=== PATIENT | female | born 1940 | race Caucasian/White ===

== ENCOUNTER 2020-01-26 23:07 | Inpatient (IN) | payer OTHER, BC ==
--- NOTE | 2020-01-26 23:35 | PDOC ---
History of Present Illness - General Chief Complaint: Injury Stated Complaint: FALL Time Seen by Provider: 01/26/20 23:34 - History of Present Illness Initial Comments: 01/27/20 00:01 HPI 79 y/o F hx of HTN,HLD presents to the ED after fall at her home. She was going down the stairs when she slipped on the last 2 stairs and fell to the floor. pt fell on her left side. denies any lightheadedness, shortness of breath or LOC before or after falling.Pt is a poor historian and unable to remember certain cotter details i.e if she was able to ambulate to EMS stretcher of if she hit her head. Pt does not think she is on any blood thinners. She denies any headache,lightheadedness, nausea, vomiting, vertigo, chest pain, shortness of breath, abdominal pain. endorses: left shoulder and elbow pain. PMHx: as noted above ROS: as noted SHx: Denies Etoh, IVDA, tobacco use Allergies: NKDA ROS: GENERAL/CONSTITUTIONAL: No fever or chills. No weakness. HEAD, EYES, EARS, NOSE AND THROAT: No change in vision. No ear pain or dischar ge. No sore throat. CARDIOVASCULAR: No chest pain or shortness of breath RESPIRATORY: No cough, wheezing, or hemoptysis. GASTROINTESTINAL: No nausea, vomiting, diarrhea or constipation. GENITOURINARY: No dysuria, frequency, or change in urination. MUSCULOSKELETAL: No joint or muscle swelling or pain. No neck or back pain. SKIN: No rash NEUROLOGIC: No headache, vertigo, loss of consciousness, or change in strength/sensation. ENDOCRINE: No increased thirst. No abnormal weight change HEMATOLOGIC/LYMPHATIC: No anemia, easy bleeding, or history of blood clots. ALLERGIC/IMMUNOLOGIC: No hives or skin allergy. PE: GENERAL: Awake, alert, and fully oriented, in no acute distress HEAD: No signs of trauma, normocephalic, atraumatic EYES: PERRLA, EOMI, sclera anicteric, conjunctiva clear ENT: Auricles normal inspection, hearing grossly normal, nares patent, oropharynx clear without exudates. Moist mucosa NECK: Normal ROM, supple, no lymphadenopathy, JVD, or masses LUNGS: No distress, speaks full sentences, clear to auscultation bilaterally HEART: Regular rate and rhythm, normal S1 and S2, no murmurs, rubs or gallops, peripheral pulses normal and equal bilaterally. ABDOMEN: Soft, nontender, normoactive bowel sounds. No guarding, no rebound. No masses EXTREMITIES : ttp left shoulder and elbow. pt. unable to abduct arm at , elbow and shoulder. ttp of distal right femur. NEUROLOGICAL: Cranial nerves II through XII grossly intact. Normal speech, no focal sensorimotor deficits SKIN: Warm, Dry, normal turgor, no rashes or lesions noted MDM DDx including but not limited to: frature, hemorrhage, Workup: head and c-spine ct, left shoulder and elbow x-rays,pelvis, right femur x-rays TX: Scores - HEART score - EKG: normal sinus rhythm, HR bpm, ID ms, QRS ms, QTc ms ED course x-rays proximal humerus fracture at surgical neck with medial displacement lateral linear fracture of humeral head olecranon fracture shortening of femoral neck with hardware in place. possible fracture consult with ortho dr messer: admit patient,get pelvis ct will see patient in the a.m pt put in sling and fentanyl given for pain control surgery in 2016 IM nail to r femur and hip and ORIF R elbow pelvis CT Patient is status post open reduction internal fixation of a right femoral fracture. No refracture of the proximal right femur is identified. Please note that the fixation corona is incompletely included on the scan and the remainder of the femur cannot be evaluated. POSITIVE for an acute appearing fracture of the right pubis just adjacent to the symphysis pubis. There is a tiny indentation of the outer cortex of the right inferior pubic ramus as well. This could represent a tiny second fracture but there is a symmetric indentation on the contralateral side and therefore it is not definitely an acute fracture. POSITIVE also for an acute nondisplaced fracture of the anterior portion of the left sacral wing. This may represent a sacral insufficiency fracture but could also be caused by trauma. No dislocation of the right or left hips cervical spine CT 1. There is no definitive evidence of acute compression fracture or subluxation seen. 2. There is multilevel multi-factorial spondylosis 3. There is a faint groundglass focus of attenuation involving the upper lobes. This is nonspecific but could relate to postinfectious process. head CT no acute intracranial pathology Past History - Medical History Allergies/Adverse Reactions: Allergies Allergy/AdvReac Type Severity Reaction Status Date / Time No Known Allergies Allergy Verified 01/26/20 23:29 Home Medications: Ambulatory Orders Aspirin [ASA -] 81 mg PO DAILY tab.chew 11/23/15 Calcium 500Mg/Vit-D 200 Units [Os-Harrison 500+D -] 1 tab PO BID tab 11/23/15 Metoprolol Tartrate [Lopressor -] 12.5 mg PO BID tablet 11/23/15 - Reproductive History Is Patient Now?: No - Psycho-Social/Smoking History Smoking History: Never smoked Have you smoked in the past 12 months: No Information on smoking cessation initiated: No - Substance Abuse Hx (Audit-C & DAST Scrn) How often the patient has a drink containing alcohol: Never Score: In Men: 4 or > Positive; In Women: 3 or > Positive: 0 Screen Result (Pos requires Nsg. Audit-10AR): Negative In the last yr the pt used illegal drug/Rx for NonMed reason: No Score: Yes response is considered Positive: 0 Screen Result (Positive result requires Nsg. DAST-10): Negative *Physical Exam - Vital Signs Last Vital Signs Temp Pulse Resp BP Pulse Ox 98.6 F 89 17 137/62 98 01/26/20 23:23 01/26/20 23:23 01/26/20 23:23 01/26/20 23:23 01/26/20 23:23 ED Treatment Course - LABORATORY CBC & Chemistry Diagram: 01/27/20 03:20 01/27/20 03:20 Discharge - Discharge Information Problems reviewed: Yes Clinical Impression/Diagnosis: Fall, Fracture - Follow up/Referral Referrals: Riddhi Clark [Primary Care Provider] - - Patient Discharge Instructions - Post Discharge Activity
--- OUTSIDE RECORDS SUMMARY | 2020-01-26 23:38 | XMS ---
:1940 [facility] Care Team Providers Name Role Phone JAMES BLADIMIR Unavailable Unavailable Re-disclosure Warning The records that you are about to access may contain information from federally- assisted alcohol or drug abuse programs. If such information is present, then the following federally mandated warning applies: This information has been disclosed to you from records protected by federal confidentiality rules (42 CFR part 2). The federal rules prohibit you from making any further disclosure of this information unless further disclosure is expressly permitted by the written consent of the person to whom it pertains or as otherwise permitted by 42 CFR part 2. A general authorization for the release of medical or other information is NOT sufficient for this purpose. The Federal rules restrict any use of the information to criminally investigate or prosecute any alcohol or drug abuse patient.The records that you are about to access may contain highly sensitive health information, the redisclosure of which is protected by Article 27-F of the [facility] Public Health law. If you continue you may haveaccess to information: Regarding HIV / AIDS; Provided by facilities licensed or operated by the [facility] Office of Mental Health; or Provided by the [facility] Office for People With Developmental Disabilities. If such information is present, then the following [facility] mandated warning applies: This information has been disclosed to you from confidential records which are protected by state law. State law prohibits you from making any further disclosure of this information without the specific written consent of the person to whom it pertains, or as otherwise permitted by law. Any unauthorized further disclosure in violation of state law may result in a fine or prison sentence or both. A general authorization for the release of medical or other information is NOT sufficient authorization for further disclosure. Encounters Encounter Providers Location Date Indications Data Source(s ) Outpatient Attender: JAMES Diana 06/02/2019 [facility] PAMELAAdmitter: 10:48[facility] JAMES GARRISONReferrer: JAMES GARRISON Insurance Providers Payer name Policy type Policy ID Covered Covered republican's Policy P keyonna / Coverage republican ID relationship to [employer] ormation type [employer] MEDICARE [id number] SP [id number] BLUE CROSS O [id number] 02 [id number] SECONDARY GHI O [id number] 02 [id number] M [id number] 01 [id number] A56 Problems, Conditions, and Diagnoses Code Display Name Description Problem Type Effective Dates Data Source(s) Z12.31 Encounter for ENCNTR SCREEN Diagnosis 06/02/2019 [facility] screening MAMMOGRAM FOR 10:48:00 AM [facility]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
[2020-01-27] MEDS ORDERED: ACETAMINOPHEN 500 MG TABLET (FP) PO ONE (00:02)
--- NOTE | 2020-01-27 00:13 | PDOC ---
Documentation entered by Nancy Rodarte SCRIBE, acting as scribe for Anupama Hansen DO. Anupama Hansen DO: This documentation has been prepared by the kana, Nancy Rodarte SCRIBE, under my direction and personally reviewed by me in its entirety. I confirm that the documentation accurately reflects all work, treatment, procedures, and medical decision making performed by me. Attending Attestation - Resident Resident Name: Ezequiel Brandon - ED Attending Attestation I have performed the following: I have examined & evaluated the patient, The case was reviewed & discussed with the resident, I agree w/resident's findings & plan, Exceptions are as noted - HPI HPI: 01/26/20 23:48 Patient is a 79 year old female with a significant past medical history of hypertension and hyperlipidemia who presents to the ED after falling at home earlier today. Patient stated she was walking down stair when she slipped on the last few stairs and fell on her left side onto the floor. Patient cannot recall is she was able to walk after falling. Patient endorses: left shoulder and left elbow pain. Patient denies: LOC, lightheadedness, headache, virtigo, nausea, vomiting, SOB, chest pain, abdominal pain, Allergies: NKDA HPI is limited due to the fact that the patient is a poor historian. - Physicial Exam PE: 01/27/20 00:04 Gen: awake, alert, uncomfortable heart: +s1s2 reg lungs: cta b/l abd: soft, nt/nd +bs ext: L elbow ttp but with FROM, ttp posterior aspect of the elbow, ttp over the shoulder with limited active and passive rom, ttp over the femure on the R mid femur and distal femur, no knee ttp, able to range LE with limited ROM at the hip and knee b/l LE, no pelvis ttp, pelvis is stable neuro: cn ii-xii grossly intact, awake, alert, but poor historian, no focal deficits - Medical Decision Making 01/27/20 00:11 a/p: 79yo female with a mechanical slip and fall on the stairs -wearing socks and said the floor was slippery -required assistance to get up -hx of prior R hip fx s/p repair -R femur pain concerning for periprosthetic fx -L shoulder and L elbow pain, will send for xray -will give tylenol for pain -no loc, but unsure if she hit her head -will send for head ct/c spine -no cp/sob/palpitations - at the bedside -will monitor and reassess 01/27/20 01:16 pt pending imaging Discharge - Discharge Information Problems reviewed: Yes Clinical Impression/Diagnosis: Fall - Admission No - Follow up/Referral Referrals: Riddhi Clark [Primary Care Provider] - - Patient Discharge Instructions - Post Discharge Activity
[2020-01-27] MEDS ORDERED: ACETAMINOPHEN 325 MG TABLET (FP) ONE (00:22)
[2020-01-27 04:05] LABS: BASO % 0.1 % (0-2.0); HEMATOCRIT 35.9 % (32.4-45.2); HEMOGLOBIN 12.1 GM/dL (10.7-15.3); LYMPH % 5.2 % (8-40); MCH 31.8 pg (25.7-33.7); MCHC 33.7 g/dl (32.0-36.0); MEAN CELL VOLUME 94.2 fl (80-96); MEAN PLT VOLUME 7.3 fl (7.5-11.1); MONO % 6.5 % (3.8-10.2); NEUT % 88.2 % (42.8-82.8); PLATELET COUNT 240 K/MM3 (134-434); RBC 3.81 M/mm3 (3.60-5.2); RDW 14.4 % (11.6-15.6); WHITE BLOOD COUNT 16.8 K/mm3 (4.0-10.0)
[2020-01-27 04:18] LABS: INR 0.99 (0.83-1.09); PROTHROMBIN TIME (PATIENT) 11.7 SEC (9.7-13.0)
[2020-01-27 04:20] LABS: ACTIVATED PTT 27.6 SECONDS (25.2-36.5)
[2020-01-27 04:35] LABS: ALK PHOS 120 U/L (45-117); BILIRUBIN,TOTAL 0.4 mg/dL (0.2-1); CHLORIDE 108 mmol/L (98-107); CREATININE 0.7 mg/dL (0.55-1.3); POTASSIUM 3.6 mmol/L (3.5-5.1); SGOT/AST 22 U/L (15-37); SGPT/ALT 19 U/L (13-61); SODIUM 141 mmol/L (136-145)
[2020-01-27 04:40] LABS: ALBUMIN 3.5 g/dl (3.4-5.0); ANION GAP 9 MMOL/L (8-16); BLOOD UREA NITROGEN 26.3 mg/dL (7-18); CALCIUM 9.2 mg/dL (8.5-10.1); CO2 24 mmol/L (21-32); GLUCOSE,RANDOM 108 mg/dL (74-106); TOT PROT 6.8 g/dl (6.4-8.2)
--- NOTE | 2020-01-27 08:30 | HP ---
CHIEF COMPLAINT: mechanical fall PCP: Amber HISTORY OF PRESENT ILLNESS: Pt is a 79 y/o female with hx right femur fracture (IM nail '16) and right olecranon fracture (ORIF '16), OA, HTN, stable angina, and HLD who presents s/p mechanical fall. She states she was wearing socks while going down the stairs and fell down the last 2 steps, landing on her left elbow. She denies hitting her head or LOC. She has a cane and walker which she does not use. She holds on to objects as needed when walking. She denies feeling weakness, chest pain, shortness of breath, abdominal pain. She reports chronic b/l leg pain from OA as well as 1-2 weeks of urinary frequency. She denies malodorous urine, dysuria, and hematura. ER course was notable for: (1) left olecranon fx, right pubic fx near symphysis and possible inferior rami fx, negative head CT, c-spine spondylosis and faint groundglass possibly from post-infectious process; waiting for final radiology reports (2) WBC 16.8 PAST MEDICAL HISTORY: PAST SURGICAL HISTORY: right femur fracture (IM nail '16) and right olecranon fracture (ORIF '16) Social History: Smoking: denies Alcohol: denies Drugs: denies lives at home with Family History: mother- pulmonary fibrosis Allergies No Known Allergies Allergy (Verified 01/26/20 23:29) HOME MEDICATIONS: Home Medications Medication Instructions Recorded Imiquimod [Aldara] 1 each TP Q2D 01/27/20 Ketoconazole 2% Cream [Nizoral 2% 1 applic TP BID 01/27/20 Cream -] Metoprolol Succinate [Toprol Xl] 12.5 mg PO BID 01/27/20 REVIEW OF SYSTEMS see HPI PHYSICAL EXAMINATION Vital Signs - 24 hr 01/26/20 01/27/20 01/27/20 23:23 03:29 06:33 Temperature 98.6 F 98.9 F 98.8 F Pulse Rate 89 Pulse Rate [ 80 87 Right Radial] Respiratory 17 16 15 Rate Blood Pressure 137/62 Blood Pressure 130/71 122/60 [Right Arm] O2 Sat by Pulse 98 98 97 Oximetry (%) GENERAL: A&Ox3, forgetful, in no acute distress. HEAD: Normal with no signs of trauma. EYES: PERRL, EOMI. EARS, NOSE, THROAT: Ears normal, nares patent, moist mucous membranes. NECK: Normal range of motion. LUNGS: CTAB, no wheezes or crackles. HEART: RRR, no murmur. ABDOMEN: Soft, nontender, not distended, normoactive bowel sounds. UPPER EXTREMITIES: Warm, well-perfused. No peripheral edema. Left arm in sling with swelling at elbow, security technician strength 5/5, pain with movement, sensation intact. LOWER EXTREMITIES: Warm, well-perfused. No peripheral edema. Right hip pain with active flexion, hesitant, plantar flexion 5/5, sensation intact. NEUROLOGICAL: Cranial nerves II-XII grossly intact. Normal speech. PSYCHIATRIC: Cooperative. Good eye contact. Appropriate mood and affect. SKIN: Warm, dry, normal turgor. Laboratory Results - last 24 hr 01/27/20 01/27/20 01/27/20 03:20 03:20 03:20 WBC 16.8 H RBC 3.81 Hgb 12.1 Hct 35.9 D MCV 94.2 MCH 31.8 MCHC 33.7 RDW 14.4 Plt Count 240 D MPV 7.3 L Absolute Neuts (auto) 14.8 H Neutrophils % 88.2 H Lymphocytes % 5.2 L D Monocytes % 6.5 Eosinophils % 0.0 D Basophils % 0.1 Nucleated RBC % 0 PT with INR 11.70 INR 0.99 PTT (Actin FS) 27.6 Sodium 141 Potassium 3.6 Chloride 108 H Carbon Dioxide 24 Anion Gap 9 BUN 26.3 H Creatinine 0.7 Est GFR (CKD-EPI)AfAm 96.18 Est GFR (CKD-EPI)NonAf 82.99 Random Glucose 108 H Calcium 9.2 Total Bilirubin 0.4 AST 22 ALT 19 Alkaline Phosphatase 120 H Troponin I < 0.02 Total Protein 6.8 Albumin 3.5 ASSESSMENT/PLAN: Pt is a 79 y/o female with hx right femur fracture (IM nail '16) and right olecranon fracture (ORIF '16), OA, HTN, angina, and HLD who presents s/p mechanical fall. She is admitted for left olecranon fx and right hip fx. #left olecranon fx #right pubis fx #s/p mechanical fall -head and neck CTs are negative for acute processes -pt is unsure if on blood thinner, none on file at pharmacy but may be on ASA -pt has hx of fx and falls, consider DEXA scan as outpatient if has not had one recently -pain control with Tylenol PO, pt does not usually take medicine for pain -PT eval -ortho consulted (Dr. Smith) #urinary frequency -UTI could explain fall from possible weakness, also has leukocytosis -UA/urine cx #stable angina -continue Toprol 12.5mg BID -ASA 81mg, pt may be taking already DVT Ppx Lovenox FEN PO fluids monitor labs sodium-controlled diet dispo med/surg FULL CODE Family Medical History Family History: Unremarkable Visit type - Medication Review Med list reviewed for High Risk Meds patients 65 and older: Yes - Emergency Visit Emergency Visit: Yes ED Registration Date: 01/27/20 Care time: The patient presented to the Emergency Department on the above date and was hospitalized for further evaluation of their emergent condition. - New Patient This patient is new to me today: Yes Date on this admission: 01/27/20 - Critical Care Critical Care patient: No ATTENDING PHYSICIAN STATEMENT I saw and evaluated the patient. I reviewed the resident's note and discussed the case with the resident. I agree with the resident's findings and plan as documented. SUBJECTIVE: OBJECTIVE: ASSESSMENT AND PLAN:
[2020-01-27] MEDS: KETOCONAZOLE 2% CREAM - 60GM TUBE TP SCH ×2 (09:16→22:32)
[2020-01-27] MEDS: metoPROLOL SUCCINATE 25 MG TAB.SR.24H (FP) PO SCH ×2 (09:16→22:31)
--- NOTE | 2020-01-27 09:53 | EKG ---
Test Reason : Blood Pressure : / mmHG Vent. Rate : 096 BPM Atrial Rate : 096 BPM P-R Int : 170 ms QRS Dur : 084 ms QT Int : 388 ms P-R-T Axes : 078 -08 083 degrees QTc Int : 490 ms POOR DATA QUALITY, INTERPRETATION MAY BE ADVERSELY AFFECTED NORMAL SINUS RHYTHM SEPTAL INFARCT , AGE UNDETERMINED ABNORMAL ECG WHEN COMPARED WITH ECG OF 18-NOV-2015 18:26, SEPTAL INFARCT IS NOW PRESENT ST NOW DEPRESSED IN INFERIOR LEADS Confirmed by MARTHA ESQUIVEL MD ([id number]) on 01/27/2020 9:53:11 AM Referred By: Confirmed By:MARTHA ESQUIVEL MD
[2020-01-27] MEDS ORDERED: ENOXAPARIN NA (PORCINE) 40 MG/0.4 ML DISP.SYRIN SQ SCH (10:00)
[2020-01-27] MEDS ORDERED: ASPIRIN 81 MG CHEWABLE TABLETS PO SCH (10:00)
--- NOTE | 2020-01-27 12:02 | PN ---
Progress Note (short form) - Note Progress Note: Pt seen and examined in ER. She is a 79 year old right hand dominant female 1 day s/p fall down 2-3 stairs, with c/o pain in the right hip, left elbow, and left shoulder. PMHx of HTN only, not on any anticoagulants. AVSS Pt in NAD, A and O x 3 RLE is NVI, good ROM but with mild pain LUE is moderately swollen around the left shoulder, min swelling left elbow LUE NVI, good ROM at the left hand and wrist, + pain with motion of the elbow and forearm No significant deformity of the elbow, not tenting the skin X-rays left elbow show a completely displaced intra articular left olecranon fracture X-rays left shoulder show a comminuted, mildly displaced, mildly angulated left proximal humerus fracture X-rays right hip and femur show a long Gamma nail in a good position, no obvious fracture CT scan pelvis shows the right femur hardware to be in a good position, no fr actures Imp As above, 79 yo R hand dom f with a displaced left olecranon fracture, left proximal humerus fx, and right hip contusion Rec Medical clearance for a left olecranon ORIF tomorrow, put on the OR schedule for 12 noon NPO after midnight tonight, she can eat today Risks, benefits, alternatives for treatment of the left proximal humerus fracture d/w pt. I am recommending non operative treatment at this time. ORIF not an option, it would have to be a shoulder hemiarthroplasty and RTC repair, which we can do in the subacute future if needed. I do not think that her function will necessarily be much beter with shoulder replacenet vs conservative treatment. She understands her options. P.T. when able for the right hip, WBAT (won't be able to use a walker)
--- NOTE | 2020-01-27 12:06 | CON.ORTH ---
Consult Reason for Consultation:: Left shoulder and elbow pain s/p mechanical fall - History of Present Illness Chief Complaint: Left shoulder and elbow pain History of Present Illness: This is a 79 year old female with a PMHx of of HTN and HLD who presented to the ED s/p fall at home yesterday. Patient states she slipped on her wood floors, landing on her left arm. She states she was found by her and brought to the ED. She states the majority of her pain is to left elbow. Also notes left shoulder pain. Denies any pain to LE. Denies any previous injuries to these area s. Denies any numbness or tingling to left UE. - History Source History Provided By: Patient Limitations to Obtaining History: No Limitations - Past Medical History Cardio/Vascular: Yes: Hyperlipdemia ...: No Musculoskeletal: Yes: Osteoarthritis - Past Surgical History Past Surgical History: Yes: - Alcohol/Substance Use Hx Alcohol Use: No - Smoking History Smoking history: Never smoked Have you smoked in the past 12 months: No - Social History Usual Living Arrangement: With Spouse History of Recent Travel: No Home Medications - Allergies Allergies/Adverse Reactions: Allergies Allergy/AdvReac Type Severity Reaction Status Date / Time No Known Allergies Allergy Verified 01/26/20 23:29 - Home Medications Home Medications: Ambulatory Orders Imiquimod [Aldara] 1 each TP Q2D 01/27/20 Ketoconazole 2% Cream [Nizoral 2% Cream -] 1 applic TP BID 01/27/20 Metoprolol Succinate [Toprol Xl] 12.5 mg PO BID 01/27/20 Review of Systems Findings/Remarks: Left shoulder and elbow pain Physical Exam for Ortho Vital Signs: Vital Signs Temperature 98.8 F 01/27/20 06:33 Pulse Rate 87 01/27/20 06:33 Respiratory Rate 15 01/27/20 06:33 Blood Pressure 122/60 01/27/20 06:33 O2 Sat by Pulse Oximetry (%) 97 01/27/20 06:33 Constitutional: Yes: Well Nourished, No Distress, Calm Labs: CBC, BMP 01/27/20 03:20 01/27/20 03:20 INR, PTT INR 0.99 (0.83-1.09) 01/27/20 03:20 - Upper Extremity Shoulder: Yes: Left (No skin lesions. Positive swelling. Pain with active or passive ROM. Tenderness to palpation over the proximal humerus.) Elbow: Yes: Left (Positive swelling without skin lesions. Pain with ROM of elbow. Tenderness over olecranon. NVID. 2+ radial pulses.) Imaging - Results X-ray: Report Reviewed, Image Reviewed (2 views of left shoulder shows minimally displaced, comminuted humeral head fracture. 3 views of left elbow shows displaced olecranon fracture. 3 views of left hip and femur does not show any evidence of acute injury. Pelvic CT shows minimally displaced fractures of right superior and inferior rami.) Assessment/Plan 79 yo F with PMHx of HTN and HLD was found to have left humerus fracture, olecranon fracture and pubic rami fractures s/p mechanical fall at home yesterday. -Patient and her son requested evaluation by Dr. Bill as he operated on the patient in the past -Discussed case with Dr. Bill -Humeral head fracture is minimally displaced and may do well with conservative treatment. I discussed both surgical and nonsurgical options at length with the patient. She would like to consider these two options but states she would likely rather conservative treatment at this time. -Patient also has an acute displaced olecranon fracture. I discussed this at length with patient as well. -Plan for left olecranon ORIF tomorrow -NPO at midnight -CT of left UE ordered for operative planning -Acute pubic rami fractures likely to heal well on their own -WBAT using platform walker -Continue UE sling -Pain control -Awaiting COVID test results
--- NOTE | 2020-01-27 21:43 | PN ---
Teaching Attending Note Name of Resident: Nohemi Lawrence ATTENDING PHYSICIAN STATEMENT I saw and evaluated the patient. I reviewed the resident's note and discussed the case with the resident. I agree with the resident's findings and plan as documented. SUBJECTIVE: Patient seen and examined at bedside, admitted for mechanical fall, has extensive h/o orthopedic surgeries, denies pain currently, VSS. OBJECTIVE: GENERAL: A&Ox3, forgetful, in no acute distress. HEAD: Normal with no signs of trauma. EYES: PERRL, EOMI. EARS, NOSE, THROAT: Ears normal, nares patent, moist mucous membranes. NECK: Normal range of motion. LUNGS: CTAB, no wheezes or crackles. HEART: RRR, no murmur. ABDOMEN: Soft, nontender, not distended, normoactive bowel sounds. UPPER EXTREMITIES: Warm, well-perfused. No peripheral edema. Left arm in sling with swelling at elbow, manager parking strength 5/5, pain with movement, sensation intact. LOWER EXTREMITIES: Warm, well-perfused. No peripheral edema. Right hip pain with active flexion, hesitant, plantar flexion 5/5, sensation intact. NEUROLOGICAL: Cranial nerves II-XII grossly intact. Normal speech. PSYCHIATRIC: Cooperative. Good eye contact. Appropriate mood and affect. SKIN: Warm, dry, normal turgor. Vital Signs (72 hours) 01/26/20 01/27/20 01/27/20 23:23 03:29 06:33 Temperature 98.6 F 98.9 F 98.8 F Pulse Rate 89 Pulse Rate [ 80 87 Right Radial] Respiratory 17 16 15 Rate Blood Pressure 137/62 Blood Pressure 130/71 122/60 [Right Arm] O2 Sat by Pulse 98 98 97 Oximetry (%) 01/27/20 01/27/20 01/27/20 17:08 18:17 18:30 Temperature 98.3 F 98.7 F Pulse Rate 99 H Pulse Rate [ 93 H 91 H Right Radial] Respiratory 19 20 16 Rate Blood Pressure 143/79 Blood Pressure 134/61 136/65 [Right Arm] O2 Sat by Pulse 97 94 L Oximetry (%) 01/27/20 01/27/20 01/27/20 19:00 21:00 22:30 Temperature 99.8 F H 99.8 F H Pulse Rate 106 H 108 H Pulse Rate [ Right Radial] Respiratory 18 18 Rate Blood Pressure 137/66 137/66 Blood Pressure [Right Arm] O2 Sat by Pulse 95 95 95 Oximetry (%) 01/28/20 04:00 Temperature 98 F Pulse Rate 93 H Pulse Rate [ Right Radial] Respiratory 18 Rate Blood Pressure 149/80 Blood Pressure [Right Arm] O2 Sat by Pulse 93 L Oximetry (%) Laboratory Results - last 24 hr 01/27/20 01/28/20 01/28/20 04:40 07:35 07:35 WBC 10.9 H RBC 3.51 L Hgb 11.3 Hct 33.1 MCV 94.2 MCH 32.2 MCHC 34.2 RDW 14.2 Plt Count 214 MPV 7.4 L Absolute Neuts (auto) 8.9 H Neutrophils % 81.9 Lymphocytes % 9.6 D Monocytes % 7.6 Eosinophils % 0.5 D Basophils % 0.4 D Nucleated RBC % 0 Sodium 139 Potassium 3.7 Chloride 106 Carbon Dioxide 27 Anion Gap 5 L BUN 21.4 H Creatinine 0.6 Est GFR (CKD-EPI)AfAm 101.18 Est GFR (CKD-EPI)NonAf 87.30 Random Glucose 92 Calcium 8.6 Magnesium 2.1 Total Bilirubin 1.3 H AST 21 ALT 16 Alkaline Phosphatase 98 Total Protein 6.3 L Albumin 3.1 L COVID-19 ([facility]) Not detected Home Medications Medication Instructions Recorded Imiquimod [Aldara] 1 each TP Q2D 01/27/20 Ketoconazole 2% Cream [Nizoral 2% 1 applic TP BID 01/27/20 Cream -] Metoprolol Succinate [Toprol Xl] 12.5 mg PO BID 01/27/20 Current Medications Generic Name Dose Route Start Last Admin Trade Name Freq PRN Reason Stop Dose Admin Acetaminophen 650 mg 01/27/20 08:16 01/27/20 22:32 Tylenol - PO 650 mg Q6H PRN Administration PAIN LEVEL 1-5 Aspirin 81 mg 01/27/20 10:00 01/27/20 09:16 Asa - PO 81 mg DAILY MALIKA Administration Enoxaparin Sodium 40 mg 01/27/20 10:00 01/27/20 09:16 Lovenox - SQ 40 mg DAILY MALIKA Administration Sodium Chloride 1,000 mls @ 75 mls/hr 01/28/20 09:15 Normal Saline - IV ASDIR MALIKA Ketoconazole 1 applic 01/27/20 10:00 09/17/20 22:32 Nizoral 2% Cream - TP 1 applic BID MALIKA Administration Metoprolol Succinate 12.5 mg 01/27/20 10:00 01/27/20 22:31 Toprol Xl - PO 12.5 mg BID MALIKA Administration ASSESSMENT AND PLAN: 79 F S/p mechanical fall right femur fracture (IM nail '16) right olecranon fracture (ORIF '16) OA CAD HTN HLD Plan: Tylenol for pain, needs extensive PT/rehab for gait training Restart BB/ASA/statin Orthopedic evaluation for hardware check L arm sling placed in ED Fall precautions in place Monitor on med-surg DVT ppx: Lovenox SC
[2020-01-27] MEDS: ACETAMINOPHEN 325 MG TABLET (FP) PO PRN (22:32)
[2020-01-28 02:42] VITALS: BMI 22.7
[2020-01-28 08:53] LABS: BASO % 0.4 % (0-2.0); EOS % 0.5 % (0-4.5); HEMATOCRIT 33.1 % (32.4-45.2); HEMOGLOBIN 11.3 GM/dL (10.7-15.3); LYMPH % 9.6 % (8-40); MCH 32.2 pg (25.7-33.7); MCHC 34.2 g/dl (32.0-36.0); MEAN CELL VOLUME 94.2 fl (80-96); MEAN PLT VOLUME 7.4 fl (7.5-11.1); MONO % 7.6 % (3.8-10.2); NEUT % 81.9 % (42.8-82.8); PLATELET COUNT 214 K/MM3 (134-434); RBC 3.51 M/mm3 (3.60-5.2); RDW 14.2 % (11.6-15.6); WHITE BLOOD COUNT 10.9 K/mm3 (4.0-10.0)
[2020-01-28 09:09] LABS: ALBUMIN 3.1 g/dl (3.4-5.0); BILIRUBIN,TOTAL 1.3 mg/dL (0.2-1); BLOOD UREA NITROGEN 21.4 mg/dL (7-18); CALCIUM 8.6 mg/dL (8.5-10.1); CREATININE 0.6 mg/dL (0.55-1.3); MAGNESIUM 2.1 mg/dL (1.8-2.4); POTASSIUM 3.7 mmol/L (3.5-5.1); TOT PROT 6.3 g/dl (6.4-8.2)
--- NOTE | 2020-01-28 09:09 | PN ---
Teaching Attending Note Name of Resident: Emma Kathleen ATTENDING PHYSICIAN STATEMENT I saw and evaluated the patient. I reviewed the resident's note and discussed the case with the resident. I agree with the resident's findings and plan as documented. SUBJECTIVE: has acceptable pain, no fever ro chills, no OSB at this time. she reprots Cp and SOB with walking ( 1 block) . cp resolves after 5 min of resting. No prior stress test or cath. No h/o , CHF, or Arrhythmias. takes metoprolol denies any LOC before the fall, slipped and fell. OBJECTIVE: NAd, awake, alert cooperative , dry MM CV: RRR, no MRG Lungs: CTAB Abd:Soft, NT, ND , NL BS Ext : No edema or erythema. on legs. L upper arm bruising and swellign . TTP . RP 2+ . No tenderness over groins, or legs . ASSESSMENT AND PLAN: 79 y/o lady with h/o HTN, HLp, angina, and previous Fx, and OA of knees who presneted after a mechanical fall . 1- Mechanical fall 2- L humerus FX. 3- L olecranon Fx 4- R Pubic rami Fx 5- C [address] 6- leukocytosis plan : - All imagin reviewed. - EKG with sinus rhythm, L axis, no ST or Tw changes. - She has sx of stable angina for a year ( CP and SOb with exertion ) . No stress test or echo in past. saw car in past 8 months ago, no tests were done. she takes metoprolol - Will ask cardiology to evaluate prior to proceeding with any surgical procedure - cont metoprolol for now - Spoke to Renetta, from [employer]. Notified - no evidence of infection , leukocytosis is likely reactive . improved - DVT px after procedure - start IVF - out pt f/u on C7 lesion
[2020-01-28] MEDS ORDERED: SODIUM CHLORIDE 1,000 ML IV SCH (09:15)
--- NOTE | 2020-01-28 09:46 | CON.CARD ---
Consult Consult Specialty:: Cardiology Referred by:: Dr. Reyes Reason for Consultation:: Angina and preop - History of Present Illness Chief Complaint: Post fall with multiple fractures History of Present Illness: 79 year-old woman with a PMHx of HTN, hyperlipidemia, stable angina with normal nuclear stress test on 11/17/2015, history of right femur fracture (s/p IM nail 2015) and right olecranon fracture (s/p ORIF 2015), admitted 01/26/20 after a mechanical fall without LOC. She was found to have left humeral head fracture which is minimally displaced and acute displaced olecranon fracture and acute pubic rami fractures. Seen by ortho. Left olecranon ORIF planned. The patient has chronic stable angina with occasional exertional SOB and chest pain for many years. She is still able to walk 3-4 blocks with normal pace. She has no recent chest pain and denies SOB at rest, palpitation, edema, orthopnea or PND. ECG 01/26/20: Poor data quality. Sinus rhythm. Normal axis. Normal ST and T. Previous cardiac tests; Echo 11/17/15: TDS. Normal LV size, wall motion and systolic function. Normal RV size and function. Normal LA and RA in size. No significant valvular abnormality. Nuclear stress test 11/17/15: Normal perfusion with diaphragmatic attenuation artifact. LVEF 77%. - History Source History Provided By: Patient, Medical Record Limitations to Obtaining History: No Limitations - Past Medical History Cardio/Vascular: Yes: Hyperlipdemia ...: No Musculoskeletal: Yes: Osteoarthritis - Past Surgical History Past Surgical History: Yes: - Alcohol/Substance Use Hx Alcohol Use: No - Smoking History Smoking history: Never smoked Have you smoked in the past 12 months: No - Social History Usual Living Arrangement: With Spouse History of Recent Travel: No Home Medications - Allergies Allergies/Adverse Reactions: Allergies Allergy/AdvReac Type Severity Reaction Status Date / Time No Known Allergies Allergy Verified 01/26/20 23:29 - Home Medications Home Medications: Ambulatory Orders Imiquimod [Aldara] 1 each TP Q2D 01/27/20 Ketoconazole 2% Cream [Nizoral 2% Cream -] 1 applic TP BID 01/27/20 Metoprolol Succinate [Toprol Xl] 12.5 mg PO BID 01/27/20 Review of Systems - Review of Systems Constitutional: reports: No Symptoms Eyes: reports: No Symptoms HENT: reports: No Symptoms Neck: reports: No Symptoms Cardiovascular: reports: Chest Pain Respiratory: reports: No Symptoms Gastrointestinal: reports: No Symptoms Genitourinary: reports: Frequency Breasts: reports: No Symptoms Reported Musculoskeletal: reports: Extremity Pain Integumentary: reports: No Symptoms Neurological: reports: No Symptoms Endocrine: reports: No Symptoms Hematology/Lymphatic: reports: No Symptoms Psychiatric: reports: No Symptoms Vital Signs: Vital Signs Temperature 98 F 01/28/20 04:00 Pulse Rate 93 H 01/28/20 04:00 Respiratory Rate 01/28/20 04:00 Blood Pressure 149/80 01/28/20 04:00 O2 Sat by Pulse Oximetry (%) 93 L 01/28/20 04:00 General: Well developed. Well nourished. No acute distress. Head: Normocephalic. Atraumatic, Eyes: PERRLA, EOMI. Sclerae anicteric. Conjunctivae clear. Neck: Supple. No JVD. No bruits. Heart: Normal S1, S2: Regular rhythm and rate. No murmur. No gallop or rub. Lungs: Symmetrical air entry. Clear to auscultation. No crackle. No wheezing or rhonchi. Abdomen: Soft. Bowel sound positive. Non tender. No masses. Extremities: No edema. No clubbing or cyanosis. PD 2+, equal bilaterally. Neuro: Intact, no focal findings. AAO X3 - Other Data Labs, Other Data: CBC, BMP 01/28/20 07:35 01/28/20 07:35 INR, PTT INR 0.99 (0.83-1.09) 01/27/20 03:20 Imaging - Results EKG: Image Reviewed (ECG 01/26/20: Poor data quality. Sinus rhythm. Normal axis. Normal ST and T.) Assessment/Plan 79 year-old woman with a PMHx of HTN, hyperlipidemia, stable angina with normal nuclear stress test on 11/17/2015, history of right femur fracture (s/p IM nail 2015) and right olecranon fracture (s/p ORIF 2015), admitted 01/26/20 after a mechanical fall without LOC. She was found to have left humeral head fracture which is minimally displaced and acute displaced olecranon fracture and acute pubic rami fractures. Seen by ortho. Left olecranon ORIF planned. The patient has chronic stable angina with occasional exertional SOB and chest pain for many years. She is still able to walk 3-4 blocks with normal pace. S ECG 01/26/20: Poor data quality. Sinus rhythm. Normal axis. Normal ST and T. Previous cardiac tests; Echo 11/17/15: TDS. Normal LV size, wall motion and systolic function. Normal RV size and function. Normal LA and RA in size. No significant valvular abnormality. Nuclear stress test 11/17/15: Normal perfusion with diaphragmatic attenuation artifact. LVEF 77%. Preoperative cardiac risk assessment: Ms. Joseph has no history of ischemic heart disease, congestive heart failure or stroke. She has symptoms of stable angina with normal nuclear stress test in November 2015. Her exercise tolerance is greater than 4 METS. ECG 01/26/20 showed sinus rhythm without arrhythmia. Therefore, the patient is at low risk of cardiac complications for the planned orthopedic operation. There are no direct cardiac contraindications to the operation. The patient has been medically optimized. No further preoperative cardiac testing is needed at this time. Please do not hesitate to call us for reconsult at any time if any further questions or additional issue arises regarding this patient.
[2020-01-28] MEDS: metoPROLOL SUCCINATE 25 MG TAB.SR.24H (FP) PO SCH ×2 (10:44→21:00)
[2020-01-28] MEDS: KETOCONAZOLE 2% CREAM - 60GM TUBE TP SCH ×2 (10:45→23:55)
--- NOTE | 2020-01-28 14:39 | PN ---
Physical Exam: SUBJECTIVE: Patient seen and examined at bedside. Overnight, patient had right arm pain that responded to Tylenol. OBJECTIVE: Vital Signs Period Temp Pulse Resp BP Sys/Lee Pulse Ox Last 24 Hr 98 F-99.8 F 91-108 16-20 127-149/55-80 93-97 GENERAL: AAOx3, in no acute distress HEENT: NCAT, PERRLA, EOMI, sclera anicteric, conjunctiva clear, oropharynx clear w/o exudates. MMM. NECK: Normal ROM, supple, no lymphadenopathy, JVD, or masses LUNGS: CTABL no wheezes/ rhonchi/ rales. No distress, speaks in full sentences. No increased work of breathing. HEART: RRR, normal S1 S2, no M/R/G, peripheral pulses 2+ and equal b/l ABDOMEN: Soft, NTND, + BS. No guarding or rebound. No hepatomegaly or splenom egaly. MSK: ROM WNL. Patient has arthritic pain lifting her legs from the bed EXTREMITIES: L upper arm bruised and swollen. Left elbow wrapped in a dressing. NEUROLOGICAL: CN II-XII intact. Normal speech, normal gait, no focal sensorimotor deficits. SKIN: Warm, Dry, normal turgor, no rashes or lesions noted Laboratory Results - last 24 hr CBC, BMP 01/28/20 07:35 01/28/20 07:35 01/27/20 01/28/20 01/28/20 04:40 07:35 07:35 WBC 10.9 H RBC 3.51 L Hgb 11.3 Hct 33.1 MCV 94.2 MCH 32.2 MCHC 34.2 RDW 14.2 Plt Count 214 MPV 7.4 L Absolute Neuts (auto) 8.9 H Neutrophils % 81.9 Lymphocytes % 9.6 D Monocytes % 7.6 Eosinophils % 0.5 D Basophils % 0.4 D Nucleated RBC % 0 Sodium 139 Potassium 3.7 Chloride 106 Carbon Dioxide 27 Anion Gap 5 L BUN 21.4 H Creatinine 0.6 Est GFR (CKD-EPI)AfAm 101.18 Est GFR (CKD-EPI)NonAf 87.30 Random Glucose 92 Calcium 8.6 Magnesium 2.1 Total Bilirubin 1.3 H AST 21 ALT 16 Alkaline Phosphatase 98 Total Protein 6.3 L Albumin 3.1 L COVID-19 ([facility]) Not detected Active Medications Generic Name Dose Route Start Last Admin Trade Name Theron PRN Reason Stop Dose Admin Acetaminophen 650 mg 01/27/20 08:16 01/27/20 22:32 Tylenol - PO 650 mg Q6H PRN Administration PAIN LEVEL 1-5 Aspirin 81 mg 01/27/20 10:00 01/27/20 09:16 Asa - PO 81 mg DAILY MALIKA Administration Enoxaparin Sodium 40 mg 01/27/20 10:00 01/27/20 09:16 Lovenox - SQ 40 mg DAILY MALIKA Administration Sodium Chloride 1,000 mls @ 75 mls/hr 01/28/20 09:15 Normal Saline - IV ASDIR MALIKA Ketoconazole 1 applic 01/27/20 10:00 01/28/20 10:45 Nizoral 2% Cream - TP 1 applic BID MALIKA Administration Metoprolol Succinate 12.5 mg 01/27/20 10:00 01/28/20 10:44 Toprol Xl - PO 12.5 mg BID MALIKA Administration ASSESSMENT/PLAN: 79 yo Female with PMX of HTN, HLD, angina, and previous Fx, and OA of knees who is presenting after a mechanical fall. Admitted for Left humerus fracture, left olecranon fracture, right pubic rami fracture. #L Olecranon Fracture -cardio cleared pt for OR today -medically stable for surgery -patient will undergo L ORIF of the olecranon -NPO today for procedure -DVT ppx held until after OR #L humerus Fracture -conservative management as per ortho reccs -f/u ortho reccs #R Pubic rami Fracture -conservative management as per ortho reccs -f/u ortho reccs #Leukocytosis -likely reactive -repeat CBC tomorrow #FEN -NS @ 75 mls/hr -monitor lytes; replete PRN -NPO until after procedure; restart on sodium controlled diet dispo: continue to monitor in med/surg Visit type - Emergency Visit Emergency Visit: No - New Patient This patient is new to me today: Yes Date on this admission: 01/28/20 - Critical Care Critical Care patient: No - Discharge Referral Referred to [facility] No - Medication Review Med list reviewed for High Risk Meds patients 65 and older: Yes ATTENDING PHYSICIAN STATEMENT I saw and evaluated the patient. I reviewed the resident's note and discussed the case with the resident. I agree with the resident's findings and plan as documented. SUBJECTIVE: OBJECTIVE: ASSESSMENT AND PLAN:
[2020-01-28] MEDS: ACETAMINOPHEN 325 MG TABLET (FP) PO PRN (15:15)
[2020-01-28] MEDS ORDERED: PROMETHAZINE HCL 25 MG/1 ML VIAL IVPUSH PRN (15:55)
[2020-01-28] MEDS ORDERED: ONDANSETRON 4 MG/2 ML VIAL IVPUSH PRN (15:55)
[2020-01-28] MEDS ORDERED: VERAPAMIL HCL 5 MG/2 ML VIAL IVPUSH ONE (15:59)
[2020-01-28] MEDS ORDERED: LACTATED RINGERS SOLUTION 1,000 ML IV SCH (16:00)
[2020-01-28] MEDS ORDERED: MIDAZOLAM HCL 2 MG/2 ML SINGLE DOSE VIAL ONE (16:04)
[2020-01-28] MEDS ORDERED: ROPIVACAINE HCL 0.5% 30ML VIAL ONE (16:05)
[2020-01-28] MEDS ORDERED: PROPOFOL 20 ML ONE ×2 (16:58)
[2020-01-28] MEDS ORDERED: ceFAZolin SODIUM 1 GM VIAL IVPB ONE (17:30)
--- NOTE | 2020-01-28 18:56 | OP ---
Operative Note - Note: Operative Date: 01/28/20 Pre-Operative Diagnosis: L olecranon fracture Operation: ORIF L olecranon Implants: daroí 3.5mm locking plate Post-Operative Diagnosis: Same as Pre-op Surgeon: Dwight Bill Anesthesiologist/LIST OF FIRST JOB IDEAS: Jermaine Weathers Anesthesia: General, Regional Estimated Blood Loss (mls): 35
[2020-01-28] MEDS ORDERED: ACETAMINOPHEN 325 MG TABLET (FP) PO PRN ×2 (19:04→19:30)
[2020-01-28] MEDS: DOCUSATE SODIUM 100 MG CAPSULE (FP) PO SCH (21:00)
[2020-01-28] MEDS: CALCIUM 500MG/VIT-D 200 UNITS COMBO TABLET (FP) PO SCH (21:00)
[2020-01-29] MEDS: CEFAZOLIN 1 GM/D5W 1 GM/50 ML BAG IVPB SCH ×3 (01:14→17:35)
[2020-01-29] MEDS: DOCUSATE SODIUM 100 MG CAPSULE (FP) PO SCH ×3 (05:52→21:40)
[2020-01-29] MEDS ORDERED: SODIUM CHLORIDE 1,000 ML IV SCH (08:00)
[2020-01-29 08:37] LABS: BASO % 0.3 % (0-2.0); EOS % 0.1 % (0-4.5); HEMATOCRIT 30.8 % (32.4-45.2); HEMOGLOBIN 10.6 GM/dL (10.7-15.3); LYMPH % 10.1 % (8-40); MCH 32.2 pg (25.7-33.7); MCHC 34.6 g/dl (32.0-36.0); MEAN CELL VOLUME 93.2 fl (80-96); MEAN PLT VOLUME 7.4 fl (7.5-11.1); MONO % 7.4 % (3.8-10.2); NEUT % 82.1 % (42.8-82.8); PLATELET COUNT 225 K/MM3 (134-434); RDW 13.9 % (11.6-15.6); WHITE BLOOD COUNT 9.9 K/mm3 (4.0-10.0)
[2020-01-29 09:05] LABS: BLOOD UREA NITROGEN 20.9 mg/dL (7-18); CALCIUM 8.7 mg/dL (8.5-10.1); CREATININE 0.4 mg/dL (0.55-1.3); POTASSIUM 4.1 mmol/L (3.5-5.1)
[2020-01-29] MEDS: ENOXAPARIN NA (PORCINE) 40 MG/0.4 ML DISP.SYRIN SQ SCH (09:56)
[2020-01-29] MEDS: CALCIUM 500MG/VIT-D 200 UNITS COMBO TABLET (FP) PO SCH ×2 (09:57→21:40)
[2020-01-29] MEDS: metoPROLOL SUCCINATE 25 MG TAB.SR.24H (FP) PO SCH ×2 (09:57→21:40)
[2020-01-29] MEDS: oxyCODONE HCL 5 MG TABLET PO PRN (09:57)
[2020-01-29] MEDS: ASPIRIN 81 MG CHEWABLE TABLETS PO SCH (09:57)
[2020-01-29] MEDS: KETOCONAZOLE 2% CREAM - 60GM TUBE TP SCH ×2 (10:04→21:40)
--- NOTE | 2020-01-29 10:27 | PN ---
Physical Exam: SUBJECTIVE: Patient seen and examined at bedside. There were no acute events overnight. This AM she reports she feels more of the same/stable/no new pain. OBJECTIVE: Vital Signs Period Temp Pulse Resp BP Sys/Lee Pulse Ox Last 24 Hr 97.5 F-98.7 F 78-92 14-20 115-140/54-90 93-100 GENERAL: The patient is awake, alert, and fully oriented, in no acute distress. HEAD: Normal with no signs of trauma. EYES: PERRL, extraocular movements intact, sclera anicteric, conjunctiva clear. No ptosis. ENT: Ears normal, nares patent, oropharynx clear without exudates, moist mucous membranes. NECK: Trachea midline, full range of motion, supple. LUNGS: Breath sounds equal, clear to auscultation bilaterally, no wheezes, no crackles, no accessory muscle use. HEART: Regular rate and rhythm, S1, S2 without murmur, rub or gallop. ABDOMEN: Soft, nontender, nondistended, normoactive bowel sounds, no guarding, no rebound, no hepatosplenomegaly, no masses. EXTREMITIES: LEFT arm in sling. 2+ pulses, warm, well-perfused, no edema. NEUROLOGICAL: Cranial nerves II through XII grossly intact. Limited ROM of LE BL. Normal speech, gait not observed. PSYCH: Normal mood, normal affect. SKIN: Warm, dry, normal turgor, no rashes or lesions noted Laboratory Results - last 24 hr 01/29/20 01/29/20 06:45 06:45 WBC 9.9 RBC 3.30 L Hgb 10.6 L Hct 30.8 L MCV 93.2 MCH 32.2 MCHC 34.6 RDW 13.9 Plt Count 225 MPV 7.4 L Absolute Neuts (auto) 8.1 H Neutrophils % 82.1 Lymphocytes % 10.1 Monocytes % 7.4 Eosinophils % 0.1 Basophils % 0.3 Nucleated RBC % 0 Sodium 139 Potassium 4.1 Chloride 106 Carbon Dioxide 26 Anion Gap 7 L BUN 20.9 H Creatinine 0.4 L Est GFR (CKD-EPI)AfAm 115.62 Est GFR (CKD-EPI)NonAf 99.76 Random Glucose 91 Calcium 8.7 Active Medications Generic Name Dose Route Start Last Admin Trade Name Freq PRN Reason Stop Dose Admin Acetaminophen 650 mg 01/28/20 19:04 Tylenol - PO Q6H PRN PAIN LEVEL 1-5 Acetaminophen 325 mg 01/28/20 19:30 Tylenol - PO Q6H PRN PAIN LEVEL 6-10 Aspirin 81 mg 01/29/20 10:00 01/29/20 09:57 Asa - PO 81 mg DAILY MALIKA Administration Calcium Carbonate/Cholecalciferol 1 tab 01/28/20 22:00 01/29/20 09:57 Os-Harrison 500+D - PO 1 tab BID MALIKA Administration Docusate Sodium 100 mg 01/28/20 22:00 01/29/20 05:52 Colace - PO 100 mg TID MALIKA Administration Enoxaparin Sodium 40 mg 01/29/20 10:00 01/29/20 09:56 Lovenox - SQ 40 mg DAILY MALIKA Administration Cefazolin Sodium 1 gm in 50 mls @ 100 mls/hr 01/29/20 02:00 01/29/20 09:58 Ancef 1 Gm Premixed Ivpb - IVPB 01/30/20 01:59 100 mls/hr Q8H-IV MALIKA Administration Sodium Chloride 1,000 mls @ 75 mls/hr 01/29/20 08:00 01/29/20 09:58 Normal Saline - IV 75 mls/hr ASDIR MALIKA Administration Ketoconazole 1 applic 01/28/20 22:00 01/29/20 10:04 Nizoral 2% Cream - TP 1 applic BID MALIKA Administration Metoprolol Succinate 12.5 mg 01/28/20 22:00 01/29/20 09:57 Toprol Xl - PO 12.5 mg BID MALIKA Administration Oxycodone HCl 5 mg 01/28/20 19:30 01/29/20 09:57 Roxicodone - PO 5 mg Q6H PRN Administration PAIN LEVEL 6-10 ASSESSMENT/PLAN: 79 y/o female PMH HTN, HLD, angina, previous fx, and OA of knees that presented s/p mechanical fall, admitted for LEFT humerus fracture, LEFT olecranon fracture, and right pubic rami fracture. LEFT olecranon fx treated with ORIF now POD 1. # LEFT olecranon fracture, LEFT humerus fracture - Oxycodone 5 mg PO q6h - PT - No WB LUE; WBAT on LEs # RIGHT pubic rami fracture - Conservative management - PT # HTN - Toprolol XL 12.5 mg PO BID # C7 sclerotic lesion on CT - f/u out-pt # FEN - PO - Cont. to monitor - Low sodium diet # DVT ppx - Lovenox # Disposition - Med/surg - Awaiting placement at [facility] Visit type - Emergency Visit Emergency Visit: No - New Patient This patient is new to me today: Yes Date on this admission: 01/29/20 - Critical Care Critical Care patient: No - Medication Review Med list reviewed for High Risk Meds patients 65 and older: Yes ATTENDING PHYSICIAN STATEMENT I saw and evaluated the patient. I reviewed the resident's note and discussed the case with the resident. I agree with the resident's findings and plan as documented. SUBJECTIVE: OBJECTIVE: ASSESSMENT AND PLAN:
[2020-01-29 12:09] LABS: ALBUMIN 2.9 g/dl (3.4-5.0); BILIRUBIN,TOTAL 0.6 mg/dL (0.2-1); MAGNESIUM 1.9 mg/dL (1.8-2.4); PHOSPHOROUS 3.4 mg/dL (2.5-4.9); TOT PROT 6.1 g/dl (6.4-8.2)
--- NOTE | 2020-01-29 12:51 | PN ---
Progress Note (short form) - Note Progress Note: Pt lying in bed. Elbow painful but manageable. No other complaints. Last Vital Signs Temp Pulse Resp BP Pulse Ox 98.7 F 93 H 18 110/62 96 01/29/20 10:00 01/29/20 10:00 01/29/20 10:00 01/29/20 10:00 01/29/20 10:[address] dressings CDI thumbs up, ok sign, finger cross intact sens int to LT 2+ rad pulse Abnormal Lab Results 01/29/20 01/29/20 06:45 06:45 RBC 3.30 L Hgb 10.6 L Hct 30.8 L MPV 7.4 L Absolute Neuts (auto) 8.1 H Anion Gap 7 L BUN 20.9 H Creatinine 0.4 L Total Protein 6.1 L Albumin 2.9 L A: pod 1 L olecranon ORIF P: finish abx today ok to be oob to chair can use platform walker, rest LUE on platform, may require additional time to comfortably weight bear on pelvis NWB LUE DVT proph dc planning
--- NOTE | 2020-01-29 13:34 | OP ---
DATE OF OPERATION: 01/28/2020 PREOPERATIVE DIAGNOSIS: Left displaced olecranon fracture. POSTOPERATIVE DIAGNOSIS: Left displaced olecranon fracture. PROCEDURE: Left olecranon open reduction, internal fixation. SURGEON: Dwight Bill MD LAYOUT INSPECTOR: None. ANESTHESIA: Regional plus general. POSTOPERATIVE CONDITION: Stable. COMPLICATIONS: None. IMPLANTS: [place] locking 3.5-mm olecranon plate. INDICATIONS: This is a 79-year-old female who had suffered a fall. She suffered multiple fractures including pelvic, left proximal humerus, and left olecranon. Treatment options were discussed including nonoperative versus operative management. Given the displacement of the olecranon, it was determined that this needed to be fixed to ensure function of the limb. We did discuss that the proximal humerus may require delayed arthroplasty; however, would prefer nonsurgical care to start and will proceed with arthroplasty should there be unacceptable outcome. I reviewed the risks of surgery including bleeding, infection, neurovascular injury, need for further surgery, postoperative pain and stiffness, nonunion, malunion, hardware cutout or failure. We discussed medical risks such as heart attack, stroke, DVT, PE, and . I addressed the use of perioperative antibiotic and DVT prophylaxis. I addressed all the patient's questions and concerns. She voiced understanding and elected to proceed. DESCRIPTION OF PROCEDURE: Patient was brought to the operating room after administration of a regional block in the preoperative holding area. She was then given general anesthesia. She was then placed in the lateral decubitus position, careful to pad all the bony prominences. The left upper extremity was then prepped and draped in the usual sterile fashion. A preoperative dose of antibiotics was given, and the usual timeout procedure was performed. The incision was then planned out curvilinear over the posterior aspect of the olecranon, curving to the radial side to avoid going directly over the olecranon and avoid the ulnar nerve. An incision was now carried down through skin to subcutaneous tissue. Electrocautery was used to maintain hemostasis. Blunt spreading was used to expose the fracture site. Electrocautery was then used to elevate the tissues off the ulna subperiosteally to allow for placement of a plate. The fracture site itself was debrided utilizing a combination of rongeur and curet. The 2 fracture ends were now reduced and held in place with a [id number] clamp. A 1.6-mm K-wire was inserted, securing the fragment in place, staying more towards the ulnar side to allow for placement of the plate more radially. Fluoroscopy was used to confirm fracture reduction, which was satisfactory. A plate was now chosen and affixed down to the shaft using the oblong hole and a 3.5-mm nonlocking screw. Plate placement was verified and reduction was verified fluoroscopically and visually, and both were satisfactory. The plate was now fixed by filling the remainder of the 2 more distal holes using locking screws, unicortical, and using unicortical locking screws in the more proximal fragment as well. After inserting all the screws, the entire construct was examined visually and fluoroscopically. Both fracture reduction, hardware placement were satisfactory. The elbow was passed through a full range of motion and found to be stable. At the fracture site. The wound was now copiously irrigated. The deep tissues were approximated using 0 Vicryl for the plate. The subcutaneous tissue was reapproximated using 3-0 Vicryl. The skin was closed using running 3-0 nylon. Sterile dressings were placed. The patient was placed into a splint. She was then extubated and transferred to recovery room in stable condition. Pawan [id number]
--- NOTE | 2020-01-29 14:34 | PN ---
Teaching Attending Note Name of Resident: Jesus Srivastava ATTENDING PHYSICIAN STATEMENT I saw and evaluated the patient. I reviewed the resident's note and discussed the case with the resident. I agree with the resident's findings and plan as documented. SUBJECTIVE: no fever or chills. pain in LUE. no SOB or CP OBJECTIVE: NAd, awake, alert cooperative , dry MM CV: RRR, no MRG Lungs: CTAB Abd: Soft, NT, ND , NL BS Ext : No edema or erythema. on legs. L upper ext in a cast. ASSESSMENT AND PLAN: 79 y/o lady with h/o HTN, HLp, angina, and previous Fx, and OA of knees who presneted after a mechanical fall . 1- Mechanical fall 2- L humerus FX. 3- L olecranon Fx 4- R Pubic rami Fx 5- C7 sclerotic lesion on CT 6- leukocytosis : resolved plan : -pain control, PT, no WB LUE . WBAT on LEs - cont metoprolol for now -resume asa and DVT px - dc IVF - out pt f/u on C7 lesion dispo to rehab whenever a bed is available
[2020-01-30] MEDS: DOCUSATE SODIUM 100 MG CAPSULE (FP) PO SCH ×3 (05:14→21:06)
[2020-01-30 09:40] LABS: HEMATOCRIT 29.9 % (32.4-45.2); HEMOGLOBIN 10.3 GM/dL (10.7-15.3); MCH 32.3 pg (25.7-33.7); MCHC 34.4 g/dl (32.0-36.0); MEAN CELL VOLUME 93.9 fl (80-96); MEAN PLT VOLUME 7.5 fl (7.5-11.1); PLATELET COUNT 256 K/MM3 (134-434); RBC 3.18 M/mm3 (3.60-5.2); RDW 14.5 % (11.6-15.6); WHITE BLOOD COUNT 9.9 K/mm3 (4.0-10.0)
[2020-01-30] MEDS: oxyCODONE HCL 5 MG TABLET PO PRN (10:03)
[2020-01-30] MEDS: metoPROLOL SUCCINATE 25 MG TAB.SR.24H (FP) PO SCH ×2 (10:03→21:06)
[2020-01-30] MEDS: ASPIRIN 81 MG CHEWABLE TABLETS PO SCH (10:03)
[2020-01-30] MEDS: CALCIUM 500MG/VIT-D 200 UNITS COMBO TABLET (FP) PO SCH ×2 (10:04→21:06)
[2020-01-30] MEDS: ENOXAPARIN NA (PORCINE) 40 MG/0.4 ML DISP.SYRIN SQ SCH (10:04)
[2020-01-30] MEDS: KETOCONAZOLE 2% CREAM - 60GM TUBE TP SCH ×2 (10:05→22:00)
--- NOTE | 2020-01-30 13:45 | PN ---
Progress Note (short form) - Note Progress Note: Subjective: no fever or chills. pain in LUE. no PINEDA . no cp . she felt dizzy with standing per RN. Objective: Vital Signs: Last Vital Signs Temp Pulse Resp BP Pulse Ox 98.0 F 98 H 18 128/64 93 L 01/30/20 08:51 01/30/20 08:51 01/30/20 08:51 01/30/20 08:51 01/30/20 08:51 Laboratory Results - last 24 hr 01/30/20 08:45 WBC 9.9 RBC 3.18 L Hgb 10.3 L Hct 29.9 L MCV 93.9 MCH 32.3 MCHC 34.4 RDW 14.5 Plt Count 256 MPV 7.5 Physical Exam: NAd, awake, alert cooperative, MMM CV: RRR, no MRG Lungs: CTAB Abd: Soft, NT, ND , NL BS. Ext : No edema or erythema. on legs. L upper ext in a cast. ca move fingers and has Nl sensation. can't evaluate pulse due to cast ASSESSMENT AND PLAN: 79 y/o lady with h/o HTN, HLp, angina, and previous Fx, and OA of knees who presneted after a mechanical fall . 1- Mechanical fall 2- L humerus FX. 3- L olecranon Fx 4- R Pubic rami Fx 5- C7 sclerotic lesion on CT 6- leukocytosis : resolved Plan : - start IVF due to light headedness with standing. BUN/Cr elevated , mild volume depletion . possible contribution of pain meds - pain control, PT, no WB LUE. WBAT on LEs - cont metoprolol - cont asa and DVT px - out pt f/u on C7 lesion Dispo: to [facility] whenever a bed is available Visit type - Emergency Visit Emergency Visit: Yes ED Registration Date: 01/27/20 Care time: The patient presented to the Emergency Department on the above date and was hospitalized for further evaluation of their emergent condition. - New Patient This patient is new to me today: No - Critical Care Critical Care patient: No - Medication Review Med list reviewed for High Risk Meds patients 65 and older: Yes
[2020-01-30] MEDS: SODIUM CHLORIDE 1,000 ML IV SCH (14:11)
[2020-01-31] MEDS: SODIUM CHLORIDE 1,000 ML IV SCH (03:07)
[2020-01-31] MEDS: DOCUSATE SODIUM 100 MG CAPSULE (FP) PO SCH ×2 (06:18→13:03)
[2020-01-31] MEDS: CALCIUM 500MG/VIT-D 200 UNITS COMBO TABLET (FP) PO SCH (09:03)
[2020-01-31] MEDS: ASPIRIN 81 MG CHEWABLE TABLETS PO SCH (09:03)
[2020-01-31] MEDS: metoPROLOL SUCCINATE 25 MG TAB.SR.24H (FP) PO SCH (09:03)
[2020-01-31] MEDS: ENOXAPARIN NA (PORCINE) 40 MG/0.4 ML DISP.SYRIN SQ SCH (09:03)
[2020-01-31 09:16] LABS: BLOOD UREA NITROGEN 22.6 mg/dL (7-18); CALCIUM 7.5 mg/dL (8.5-10.1); CREATININE 0.4 mg/dL (0.55-1.3); POTASSIUM 3.5 mmol/L (3.5-5.1)
[2020-01-31 09:36] LABS: HEMATOCRIT 25.3 % (32.4-45.2); HEMOGLOBIN 8.6 GM/dL (10.7-15.3); MCH 31.8 pg (25.7-33.7); MCHC 33.9 g/dl (32.0-36.0); MEAN CELL VOLUME 93.8 fl (80-96); MEAN PLT VOLUME 7.4 fl (7.5-11.1); PLATELET COUNT 243 K/MM3 (134-434); RDW 14.2 % (11.6-15.6); WHITE BLOOD COUNT 6.9 K/mm3 (4.0-10.0)
[2020-01-31] MEDS ORDERED: KETOCONAZOLE 2% TOPICAL CREAM 15 GM TUBE TP SCH (10:00)
--- NOTE | 2020-01-31 12:14 | PN ---
Progress Note (short form) - Note Progress Note: 79 yo F POD #3 s/p left olecranon ORIF. Patient is lying comfortably in bed. Notes pain to left elbow and shoulder, improving daily. Last Vital Signs Temp Pulse Resp BP Pulse Ox 97.8 F 97 H 18 130/68 92 L 01/31/20 10:30 01/31/20 10:30 01/31/20 10:30 01/31/20 10:30 01/31/20 10:30 PE: LUE Sling in place Dressing C/D/I NVID 2+ radial pulses Abnormal Lab Results 01/31/20 01/31/20 06:53 06:53 RBC 2.70 L Hgb 8.6 L Hct 25.3 L D MPV 7.4 L Chloride 109 H Anion Gap 5 L BUN 22.6 H Creatinine 0.4 L Calcium 7.5 L A: POD #3 s/p left olecranon ORIF P: Pain control Continue splint and sling Plan for discharge to rehab F/u as outpatient 2 weeks post-op
[2020-01-31 14:10] VITALS: BP 121/56; PULSE 102; TEMP 98.6
--- NOTE | 2020-01-31 15:05 | PN ---
Teaching Attending Note Name of Resident: Jesus Srivastava ATTENDING PHYSICIAN STATEMENT I saw and evaluated the patient. I reviewed the resident's note and discussed the case with the resident. I agree with the resident's findings and plan as documented. SUBJECTIVE: pain in L arm . no fever or chills OBJECTIVE: NAd, awake, alert cooperative, MMM CV: RRR, no MRG Lungs: CTAB Abd: Soft, NT, ND , NL BS. Ext : No edema or erythema on legs. L upper ext in a cast. has normal sensation in hand and moves fingers. wrist is covered with cast. ASSESSMENT AND PLAN: 79 y/o lady with h/o HTN, HLp, angina, and previous Fx, and OA of knees who presneted after a mechanical fall . 1- Mechanical fall 2- L humerus FX. 3- L olecranon Fx 4- R Pubic rami Fx 5- C7 sclerotic lesion on CT 6- leukocytosis : resolved Plan : - dc IVF - pain control, PT, no WB LUE. WBAT on LEs - cont metoprolol - cont asa . - DVT px while here - out pt f/u on C7 lesion with PCP for MRI Dispo: to [facility] whenever a bed is available
--- NOTE | 2020-01-31 16:12 | DS ---
Physical Exam: SUBJECTIVE: Patient seen and examined at bedside. There were no acute events overnight. some improvement of her pain, No BM last night, reports that it is normal for her to not have BMs regularly. Denies any constipation, chest pain, nausea, vomiting, fever, chills, dysuria OBJECTIVE: Vital Signs Period Temp Pulse Resp BP Sys/Lee Pulse Ox Last 24 Hr 97.8 F-99.2 F 92-108 18-20 121-130/56-68 92-95 PHYSICAL EXAM GENERAL: The patient is awake, alert, and fully oriented, in no acute distress. HEAD: Normal with no signs of trauma. EYES: PERRL, extraocular movements intact, sclera anicteric, conjunctiva clear. No ptosis. ENT: Ears normal, nares patent, oropharynx clear without exudates, moist mucous membranes. NECK: Trachea midline, full range of motion, supple. LUNGS: Breath sounds equal, clear to auscultation bilaterally, no wheezes, no crackles, no accessory muscle use. HEART: Regular rate and rhythm, S1, S2 without murmur, rub or gallop. ABDOMEN: Soft, nontender, nondistended, normoactive bowel sounds, no guarding, no rebound, no hepatosplenomegaly, no masses. EXTREMITIES: LEFT arm in sling. 2+ pulses, warm, well-perfused, no edema. NEUROLOGICAL: Cranial nerves II through XII grossly intact. Limited ROM of LE BL. Normal speech, gait not observed. PSYCH: Normal mood, normal affect. SKIN: Warm, dry, normal turgor, no rashes or lesions noted LABS Laboratory Results - last 24 hr 01/31/20 01/31/20 06:53 06:53 WBC 6.9 RBC 2.70 L Hgb 8.6 L Hct 25.3 L D MCV 93.8 MCH 31.8 MCHC 33.9 RDW 14.2 Plt Count 243 MPV 7.4 L Sodium 141 Potassium 3.5 Chloride 109 H Carbon Dioxide 27 Anion Gap 5 L BUN 22.6 H Creatinine 0.4 L Est GFR (CKD-EPI)AfAm 115.62 Est GFR (CKD-EPI)NonAf 99.76 Random Glucose 82 Calcium 7.5 L HOSPITAL COURSE: Date of Admission:01/27/20 79 y/o female PMH HTN, HLD, angina, previous fxs, and OA of knees that presented s/p mechanical fall, admitted for LEFT humerus fracture, LEFT olecranon fra cture, and right pubic rami fracture. patient was seen and evaluated by Ortho, dwight Muñoz. s/p left olecranon ORIF POD #3 Patient remained afibrile and hemodynamically stable during the hospital course. she is clinically stable for discharge, discharged her with instruction, referrals and prescriptions as listed below. Date of Discharge: 01/31/20 Minutes to complete discharge: 36 Discharge Summary Problems reviewed: Yes Reason For Visit: CLOSED FRACTURE OF HUMERUS, FRACTURE OF OLECRANON Current Active Problems Fall (Acute) Fracture (Acute) Condition: Improved - Instructions Diet, Activity, Other Instructions: YOUR VISIT You came to the hospital because you fell down and injured your left arm . You were admitted to the hospital for treatment of your left arm injury. Imaging revealed bone breakage in your elbow. You had a surgery to stabilize the breakage of the bone. You are now stable and is being discharged to a rehab center for Physical therapy. Imaging also showed that you may have some bone changes in your cervical spine (neck), you will need to f/u outpatient for further evaluation and management. Please discuss these findings with your PCP MEDICATIONS Please continue to take your home medications as prescribed. You have *NEW* mediation. Please Start taking Calcium Carbonate/Cholecalciferol(Os-maki 500+D) 1 tablet twice a day Please Start taking Aspirin(ASA) 81 mg daily ADDITIONAL CARE Please make an appointment to see your primary care provider, Dr. Clark, within 1 week after discharge from your rehab center Please make an appointment to see your Orthopedic surgeon, dwight Muñoz, with 2 weeks for management and evaluation of post-op course ADDITIONAL INFORMATION Please call 911 or come directly to the emergency department if you experience recurrence of the symptoms that brought you to the hospital, unusual headache, vision change, shortness of breath, chest pain, numbness, tingling, loss of alertness/awareness, loss of function, unusual bleeding or any alarming symptoms. Do not bear any weight on your LEFT arm. No weight baring on left upper extremity. keep sling and cast on L upper extremity manny baring as tolerated on lower extremities You have a lesion in your 7th cervical spine bone. please follow with primary doctor to get MRI. Referrals: Dwight Bill MD [Staff Physician] - 2 Weeks Riddhi Clark [Primary Care Provider] - Disposition: PHYSICAL REHABILATION FACILITY - Home Medications Comprehensive Discharge Medication List: Ambulatory Orders Imiquimod [Aldara] 1 each TP Q2D 01/27/20 Ketoconazole 2% Cream [Nizoral 2% Cream -] 1 applic TP BID 01/27/20 Metoprolol Succinate [Toprol Xl] 12.5 mg PO DAILY 01/27/20 Aspirin [ASA -] 81 mg PO DAILY tab.chew 01/31/20 Calcium 500Mg/Vit-D 200 Units [Os-Maki 500+D -] 1 tab PO BID tab 01/31/20 Docusate Sodium [Colace -] 100 mg PO TID capsule 01/31/20 Oxycodone HCl [Roxicodone] 2.5 mg PO Q6H PRN #10 tablet MDD 10 mg 01/31/20 This patient is new to me today: No Emergency Visit: Yes ED Registration Date: 01/27/20 Care time: The patient presented to the Emergency Department on the above date and was hospitalized for further evaluation of their emergent condition. Critical Care patient: No - Discharge Referral Referred to [facility] Med P.C.: No ATTENDING PHYSICIAN STATEMENT I saw and evaluated the patient. I reviewed the resident's note and discussed the case with the resident. I agree with the resident's findings and plan as documented. SUBJECTIVE: OBJECTIVE: ASSESSMENT AND PLAN:
== END 2020-01-31 18:24 | DRG 511 ==
LOC: JER 23:07 → JERBED 01-27 03:31 → J5S 01-27 18:25 → J6S 01-28 11:48
PROVIDERS: ATTEND Internal Medicine
PROC: 0PSL04Z Reposition Left Ulna with Internal Fixation Device, Open Approach (ICD-10-PCS; principal; 2020-01-28 16:00)
DX: S52.022A Displaced fracture of olecranon process without intraarticular extension of left ulna, initial encounter for closed fracture (principal); S42.292A Other displaced fracture of upper end of left humerus, initial encounter for closed fracture; S32.511A Fracture of superior rim of right pubis, initial encounter for closed fracture; I10 Essential (primary) hypertension; E78.5 Hyperlipidemia, unspecified; W10.8XXA Fall (on) (from) other stairs and steps, initial encounter; Y93.89 Activity, other specified; Y92.098 Other place in other non-institutional residence as the place of occurrence of the external cause; Y99.8 Other external cause status; I25.10 Atherosclerotic heart disease of native coronary artery without angina pectoris; D72.829 Elevated white blood cell count, unspecified
CPT/HCPCS: 36415; 70450-TC; 71045-TC-FY; 72125-TC; 72170-TC-FY; 72192-TC; 73030-TC-LT-FY; 73070-TC-LT-FY; 73200-TC-RT; 73552-TC-RT-FY; 76000-TC-FY; 80048; 80053; 83735; 84100; 84484; 85025; 85027; 85610; 85730; 93005; 93010; 94760; 97116-GP; 97162-GP; 99285-25; U0003

== ENCOUNTER 2021-11-17 19:33 | Observation (INO) | payer OTHER, BC ==
[2021-11-17] MEDS ORDERED: ACETAMINOPHEN INJECTION 100 ML IVPB ONE (19:54)
[2021-11-17] MEDS ORDERED: SODIUM CHLORIDE 0.9% 500 ML INFUS.BAG IV ONE (19:54)
[2021-11-17] MEDS ORDERED: ACETAMINOPHEN 1000 MG/100 ML BAG IVPB ONE (19:54)
[2021-11-17 20:34] LABS: HEMATOCRIT 37.9 % (32.4-45.2); HEMOGLOBIN 13.1 GM/dL (10.7-15.3); MCH 31.7 pg (25.7-33.7); MCHC 34.5 g/dl (32.0-36.0); MEAN CELL VOLUME 91.8 fl (80-96); MEAN PLT VOLUME 6.8 fl (7.5-11.1); PLATELET COUNT 300 10^3/uL (134-434); RBC 4.13 M/mm3 (3.60-5.2); RDW 14.1 % (11.6-15.6); WHITE BLOOD COUNT 11.1 K/mm3 (4.0-10.0)
[2021-11-17 20:40] LABS: VENOUS BASE EXCESS -2.5 mmol/L (-2-2); VENOUS O2 SATURATION 89.4 % (70-80); VENOUS PCO2 34.5 mmHg (38-52); VENOUS PH 7.411 (7.310-7.410)
[2021-11-17 20:43] LABS: INR 1.11 (0.83-1.09); PROTHROMBIN TIME (PATIENT) 12.8 SEC (9.7-13.0)
[2021-11-17 20:46] LABS: ACTIVATED PTT 28.4 SECONDS (25.2-36.5)
[2021-11-17 20:53] LABS: ALBUMIN 3.5 g/dl (3.4-5.0); BLOOD UREA NITROGEN 19.2 mg/dL (7-18); CALCIUM 8.7 mg/dL (8.5-10.1)
[2021-11-17 20:56] LABS: CREATININE 0.6 mg/dL (0.55-1.3)
[2021-11-17 20:58] LABS: BILIRUBIN,TOTAL 0.4 mg/dL (0.2-1); TOT PROT 6.7 g/dl (6.4-8.2)
[2021-11-17 21:21] LABS: ANISOCYTOSIS 1+; MACROCYTOSIS 0
[2021-11-17 23:25] LABS: EPI CELLS 7 /uL (0-25.1); HYALINE CASTS 1 /uL (0-3.1); PH,URINE 5.5 (5.0-8.0); URINE APPEARANCE CLEAR; URINE BACTERIA 16 /uL (0-1359); URINE BILIRUBIN NEGATIVE (NEGATIVE); URINE COLOR YELLOW; URINE GLUCOSE (UA) NEGATIVE (NEGATIVE); URINE KETONE 3+ (NEGATIVE); URINE LEUK ESTERASE NEGATIVE (NEGATIVE); URINE NITRITE NEGATIVE (NEGATIVE); URINE PROTEIN NEGATIVE (NEGATIVE); URINE RBC 42 /uL (0-23.9); URINE UROBILINOGEN 0.2 mg/dL (0.2-1.0); URINE WBC 5 /uL (0-25.8)
[2021-11-18] MEDS ORDERED: ACETAMINOPHEN 325 MG TABLET (FP) PO PRN (02:44)
[2021-11-18 08:25] LABS: BASO % 0.5 % (0-2.0); EOS % 0.4 % (0-4.5); HEMATOCRIT 36.5 % (32.4-45.2); HEMOGLOBIN 12.5 GM/dL (10.7-15.3); MCH 31.4 pg (25.7-33.7); MCHC 34.2 g/dl (32.0-36.0); MEAN CELL VOLUME 91.7 fl (80-96); MEAN PLT VOLUME 7.2 fl (7.5-11.1); MONO % 9.2 % (3.8-10.2); NEUT % 78.9 % (42.8-82.8); PLATELET COUNT 299 10^3/uL (134-434); RBC 3.99 M/mm3 (3.60-5.2); RDW 13.9 % (11.6-15.6); WHITE BLOOD COUNT 8.9 K/mm3 (4.0-10.0)
[2021-11-18 08:34] LABS: BLOOD UREA NITROGEN 13.5 mg/dL (7-18); CALCIUM 8.8 mg/dL (8.5-10.1)
[2021-11-18 08:38] LABS: CREATININE 0.5 mg/dL (0.55-1.3)
[2021-11-18] MEDS ORDERED: ENOXAPARIN NA (PORCINE) 40 MG/0.4 ML DISP.SYRIN SQ ONE (09:50)
[2021-11-18] MEDS: ENOXAPARIN NA (PORCINE) 40 MG/0.4 ML DISP.SYRIN SQ SCH (09:58)
[2021-11-19 09:04] LABS: BASO % 0.5 % (0-2.0); EOS % 3.3 % (0-4.5); HEMATOCRIT 35.8 % (32.4-45.2); HEMOGLOBIN 12.4 GM/dL (10.7-15.3); MCH 31.9 pg (25.7-33.7); MCHC 34.7 g/dl (32.0-36.0); MEAN PLT VOLUME 7.4 fl (7.5-11.1); MONO % 9.3 % (3.8-10.2); NEUT % 68.9 % (42.8-82.8); PLATELET COUNT 306 10^3/uL (134-434); RBC 3.89 M/mm3 (3.60-5.2); WHITE BLOOD COUNT 8.2 K/mm3 (4.0-10.0)
[2021-11-19] MEDS: ENOXAPARIN NA (PORCINE) 40 MG/0.4 ML DISP.SYRIN SQ SCH (09:29)
[2021-11-19 09:39] LABS: BLOOD UREA NITROGEN 18.9 mg/dL (7-18)
[2021-11-19 09:41] LABS: CALCIUM 8.4 mg/dL (8.5-10.1)
[2021-11-19 09:42] LABS: MAGNESIUM 2.3 mg/dL (1.8-2.4)
[2021-11-19 09:45] LABS: BILIRUBIN,TOTAL 0.8 mg/dL (0.2-1); CREATININE 0.5 mg/dL (0.55-1.3)
[2021-11-19] MEDS ORDERED: POTASSIUM CHLORIDE TABS 10 MEQ TABLET.ER (FP) PO ONE (13:45)
[2021-11-19] MEDS: DONEPEZIL HCL 10 MG TABLET (FP) PO SCH (14:55)
[2021-11-20 07:39] LABS: HEMATOCRIT 34.2 % (32.4-45.2); HEMOGLOBIN 11.8 GM/dL (10.7-15.3); MCHC 34.5 g/dl (32.0-36.0); MEAN CELL VOLUME 92.9 fl (80-96); MEAN PLT VOLUME 7.6 fl (7.5-11.1); PLATELET COUNT 298 10^3/uL (134-434); RBC 3.68 M/mm3 (3.60-5.2); RDW 14.3 % (11.6-15.6); WHITE BLOOD COUNT 8.1 K/mm3 (4.0-10.0)
[2021-11-20 08:09] LABS: CALCIUM 8.3 mg/dL (8.5-10.1)
[2021-11-20 08:11] LABS: ALBUMIN 2.7 g/dl (3.4-5.0); BLOOD UREA NITROGEN 22.7 mg/dL (7-18)
[2021-11-20 08:13] LABS: CREATININE 0.4 mg/dL (0.55-1.3)
[2021-11-20 08:15] LABS: BILIRUBIN,TOTAL 0.4 mg/dL (0.2-1); TOT PROT 5.7 g/dl (6.4-8.2)
[2021-11-20] MEDS: DONEPEZIL HCL 10 MG TABLET (FP) PO SCH (10:04)
[2021-11-20] MEDS: ENOXAPARIN NA (PORCINE) 40 MG/0.4 ML DISP.SYRIN SQ SCH (10:04)
[2021-11-20 11:52] VITALS: TEMP 98.1
[2021-11-20] MEDS ORDERED: SODIUM CHLORIDE 1,000 ML IV SCH (13:15)
[2021-11-20 16:41] VITALS: BP 118/62; PULSE 82
[2021-11-20 16:49] LABS: MAGNESIUM 2.2 mg/dL (1.8-2.4)
[2021-11-20 16:53] LABS: PHOSPHOROUS 3.2 mg/dL (2.5-4.9)
== END 2021-11-20 19:03 ==
LOC: JER 19:33 → UNDOADMOB 20:07 → JERBED 20:07 → OBSVTOIN 11-18 02:36 → INTOOBSV 11-18 02:36 → JERBED 11-18 16:52 → J4W 11-18 16:52 → JERBED 11-19 10:41 → J4W 11-19 10:41
PROVIDERS: ADMIT Hospitalist; ATTEND Internal Medicine
PROC: 3E023GC Introduction of Other Therapeutic Substance into Muscle, Percutaneous Approach (ICD-10-PCS; principal; 2021-11-19)
PROC: 3E033NZ Introduction of Analgesics, Hypnotics, Sedatives into Peripheral Vein, Percutaneous Approach (ICD-10-PCS; 2021-11-19)
PROC: 3E0337Z Introduction of Electrolytic and Water Balance Substance into Peripheral Vein, Percutaneous Approach (ICD-10-PCS; 2021-11-19)
DX: F03.90 Unspecified dementia, unspecified severity, without behavioral disturbance, psychotic disturbance, mood disturbance, and anxiety (principal); A41.9 Sepsis, unspecified organism; I10 Essential (primary) hypertension; R65.10 Systemic inflammatory response syndrome (SIRS) of non-infectious origin without acute organ dysfunction; E78.5 Hyperlipidemia, unspecified; R50.9 Fever, unspecified; W00.0XXA Fall on same level due to ice and snow, initial encounter; Y93.E1 Activity, personal bathing and showering; Y92.002 Bathroom of unspecified non-institutional (private) residence as the place of occurrence of the external cause; R00.0 Tachycardia, unspecified; D72.829 Elevated white blood cell count, unspecified; Z29.8 Encounter for other specified prophylactic measures; R26.2 Difficulty in walking, not elsewhere classified; Z99.89 Dependence on other enabling machines and devices; Z79.01 Long term (current) use of anticoagulants
CPT/HCPCS: 0241U-QW; 36415; 70450-TC; 71045-TC-FY; 72125-TC; 72170-TC-FY; 73502-TC-LT-FY; 80048; 80053; 81003; 82803; 83605; 83735; 84100; 84484; 85025; 85027; 85610; 85730; 86850; 86900; 86901; 87040; 87086; 93005; 93010; 96361; 96372; 96374; 97116-GP; 97161-GP; 99285-25; G0378

== ENCOUNTER 2022-04-08 18:52 | Inpatient (IN) | payer OTHER, BC ==
[2022-04-08 20:58] LABS: HEMATOCRIT 42.1 % (32.4-45.2); HEMOGLOBIN 13.8 GM/dL (10.7-15.3); MCH 29.7 pg (25.7-33.7); MCHC 32.8 g/dl (32.0-36.0); MEAN CELL VOLUME 90.4 fl (80-96); MEAN PLT VOLUME 7.1 fl (7.5-11.1); PLATELET COUNT 331 10^3/uL (134-434); RBC 4.66 M/mm3 (3.60-5.2); RDW 15.5 % (11.6-15.6)
[2022-04-08 21:06] LABS: INR 1.12 (0.83-1.09); PROTHROMBIN TIME (PATIENT) 12.9 SEC (9.7-13.0)
[2022-04-08 21:09] LABS: ACTIVATED PTT 32.2 SECONDS (25.2-36.5)
[2022-04-08 21:21] LABS: CALCIUM 8.9 mg/dL (8.5-10.1)
[2022-04-08 21:22] LABS: ALBUMIN 3.1 g/dl (3.4-5.0); BLOOD UREA NITROGEN 26.6 mg/dL (7-18)
[2022-04-08 21:25] LABS: CREATININE 0.7 mg/dL (0.55-1.3)
[2022-04-08 21:27] LABS: BILIRUBIN,TOTAL 0.3 mg/dL (0.2-1); TOT PROT 6.8 g/dl (6.4-8.2)
[2022-04-09] MEDS ORDERED: SODIUM CHLORIDE 0.9% 500 ML INFUS.BAG IV ONE (00:28)
[2022-04-09] MEDS ORDERED: ACETAMINOPHEN 1000 MG/100 ML BAG IVPB ONE (01:52)
[2022-04-09] MEDS ORDERED: ACETAMINOPHEN INJECTION 100 ML IVPB ONE (01:53)
[2022-04-09 02:05] LABS: EPI CELLS >36 /uL (0-25.1); HYALINE CASTS 14 /uL (0-3.1); PH,URINE 5.5 (5.0-8.0); URINE APPEARANCE CLEAR; URINE BACTERIA 46 /uL (0-1359); URINE BILIRUBIN NEGATIVE (NEGATIVE); URINE COLOR YELLOW; URINE GLUCOSE (UA) NEGATIVE (NEGATIVE); URINE KETONE 2+ (NEGATIVE); URINE LEUK ESTERASE 1+ (NEGATIVE); URINE NITRITE NEGATIVE (NEGATIVE); URINE PROTEIN 2+ (NEGATIVE); URINE UROBILINOGEN 0.2 mg/dL (0.2-1.0); URINE WBC 424 /uL (0-25.8)
[2022-04-09] MEDS ORDERED: CEFTRIAXONE 1,000 MG in DEXTROSE 5%-WATER - 50 ML IVPB ONE (02:10)
[2022-04-09] MEDS ORDERED: CEFTRIAXONE 1 GM/50 ML BAG ONE ×2 (02:24→09:31)
[2022-04-09] MEDS ORDERED: SODIUM CHLORIDE 1,000 ML IV STA (04:12)
[2022-04-09] MEDS ORDERED: ACETAMINOPHEN 1000 MG/100 ML BAG IVPB PRN (04:15)
[2022-04-09] MEDS ORDERED: REMDESIVIR 200 MG in SODIUM CHLORIDE 250 ML IVPB ONE ×2 (04:15→06:00)
[2022-04-09] MEDS ORDERED: ALBUTEROL SO4 0.083% IH SOL 2.5 MG/3 ML VIAL.NEB. NEB PRN (04:19)
[2022-04-09] MEDS ORDERED: AZITHROMYCIN IVPB 500 MG/250 ML BAG IVPB ONE ×2 (04:30→04:52)
[2022-04-09 07:20] LABS: URINE RBC 143.4 /uL (0-23.9)
[2022-04-09] MEDS: SODIUM CHLORIDE 1,000 ML IV SCH ×2 (08:25→22:30)
[2022-04-09 09:00] LABS: BASO % 0.2 % (0-2.0); EOS % 0.1 % (0-4.5); HEMATOCRIT 35.9 % (32.4-45.2); HEMOGLOBIN 11.9 GM/dL (10.7-15.3); LYMPH % 17.7 % (8-40); MCH 30.3 pg (25.7-33.7); MCHC 33.3 g/dl (32.0-36.0); MEAN CELL VOLUME 91.1 fl (80-96); MEAN PLT VOLUME 7.6 fl (7.5-11.1); MONO % 5.5 % (3.8-10.2); NEUT % 76.5 % (42.8-82.8); PLATELET COUNT 302 10^3/uL (134-434); RBC 3.94 M/mm3 (3.60-5.2); RDW 15.6 % (11.6-15.6); WHITE BLOOD COUNT 9.1 K/mm3 (4.0-10.0)
[2022-04-09 09:25] LABS: CALCIUM 7.6 mg/dL (8.5-10.1)
[2022-04-09 09:26] LABS: ALBUMIN 2.5 g/dl (3.4-5.0); BLOOD UREA NITROGEN 19.1 mg/dL (7-18)
[2022-04-09 09:27] LABS: MAGNESIUM 1.8 mg/dL (1.8-2.4)
[2022-04-09 09:29] LABS: CREATININE 0.5 mg/dL (0.55-1.3)
[2022-04-09 09:30] LABS: BILIRUBIN,TOTAL 0.3 mg/dL (0.2-1); PHOSPHOROUS 2.7 mg/dL (2.5-4.9); TOT PROT 5.6 g/dl (6.4-8.2)
[2022-04-09] MEDS ORDERED: DEXAMETHASONE SOD PHOSPHATE 10 MG/1 ML VIAL ONE (09:30)
[2022-04-09] MEDS ORDERED: ENOXAPARIN NA (PORCINE) 40 MG/0.4 ML DISP.SYRIN SQ ONE (09:30)
[2022-04-09] MEDS: DEXAMETHASONE SOD PHOSPHATE 10 MG/1 ML VIAL IVPUSH SCH (09:43)
[2022-04-09] MEDS: MEMANTINE HCL 5 MG TABLET (UD) PO SCH (09:43)
[2022-04-09] MEDS: CEFTRIAXONE 1 GM in DEXTROSE 5%-WATER - 50 ML IVPB SCH (09:44)
[2022-04-09] MEDS ORDERED: DEXAMETHASONE SOD PHOSPHATE 10 MG/1 ML VIAL IVPUSH SCH (10:00)
[2022-04-09] MEDS ORDERED: DONEPEZIL HCL 10 MG TABLET (FP) PO SCH (10:00)
[2022-04-09] MEDS: ENOXAPARIN NA (PORCINE) 40 MG/0.4 ML DISP.SYRIN SQ SCH (10:55)
[2022-04-09] MEDS: BUDESONIDE/FORMETEROL FUMARATE 80/4.5 mcg INHALER IH SCH ×2 (11:13→22:37)
[2022-04-09] MEDS: DONEPEZIL HCL 10 MG TABLET (FP) PO SCH (22:53)
[2022-04-10 05:12] VITALS: BMI 20.2
[2022-04-10] MEDS: SODIUM CHLORIDE 1,000 ML IV SCH ×2 (07:00→10:22)
[2022-04-10] MEDS ORDERED: VANCOMYCIN 1 GM in D5W (PRE-DOCKED) 1,000 MG/250 ML IVPB ONE (09:35)
[2022-04-10] MEDS: DEXAMETHASONE SOD PHOSPHATE 10 MG/1 ML VIAL IVPUSH SCH (10:01)
[2022-04-10] MEDS: CEFTRIAXONE 1 GM in DEXTROSE 5%-WATER - 50 ML IVPB SCH (10:01)
[2022-04-10] MEDS: REMDESIVIR 100 MG in SODIUM CHLORIDE 250 ML IVPB SCH (10:01)
[2022-04-10] MEDS: ENOXAPARIN NA (PORCINE) 40 MG/0.4 ML DISP.SYRIN SQ SCH (10:02)
[2022-04-10] MEDS: MEMANTINE HCL 5 MG TABLET (UD) PO SCH (10:02)
[2022-04-10] MEDS: BUDESONIDE/FORMETEROL FUMARATE 80/4.5 mcg INHALER IH SCH ×2 (10:03→22:30)
[2022-04-10 10:33] LABS: BASO % 0.2 % (0-2.0); HEMATOCRIT 34.8 % (32.4-45.2); HEMOGLOBIN 11.5 GM/dL (10.7-15.3); LYMPH % 17.3 % (8-40); MCHC 33.1 g/dl (32.0-36.0); MEAN CELL VOLUME 90.6 fl (80-96); MEAN PLT VOLUME 7.2 fl (7.5-11.1); MONO % 5.8 % (3.8-10.2); NEUT % 76.7 % (42.8-82.8); PLATELET COUNT 319 10^3/uL (134-434); RBC 3.85 M/mm3 (3.60-5.2); RDW 15.3 % (11.6-15.6); WHITE BLOOD COUNT 10.5 K/mm3 (4.0-10.0)
[2022-04-10 10:57] LABS: BLOOD UREA NITROGEN 17.4 mg/dL (7-18)
[2022-04-10 10:59] LABS: CALCIUM 8.2 mg/dL (8.5-10.1)
[2022-04-10 11:00] LABS: CREATININE 0.4 mg/dL (0.55-1.3)
[2022-04-10] MEDS: SODIUM CHLORIDE 0.45% 1,000 ML IV SCH (11:26)
[2022-04-10] MEDS: DOXYCYCLINE HYCLATE 100 MG CAPSULE PO SCH (17:26)
[2022-04-10] MEDS: DONEPEZIL HCL 10 MG TABLET (FP) PO SCH (22:29)
[2022-04-11] MEDS: DEXAMETHASONE SOD PHOSPHATE 10 MG/1 ML VIAL IVPUSH SCH (10:15)
[2022-04-11] MEDS: ENOXAPARIN NA (PORCINE) 40 MG/0.4 ML DISP.SYRIN SQ SCH (10:15)
[2022-04-11] MEDS: MEMANTINE HCL 5 MG TABLET (UD) PO SCH (10:16)
[2022-04-11] MEDS: DOXYCYCLINE HYCLATE 100 MG CAPSULE PO SCH ×2 (10:18→17:05)
[2022-04-11] MEDS: REMDESIVIR 100 MG in SODIUM CHLORIDE 250 ML IVPB SCH (10:59)
[2022-04-11] MEDS: BUDESONIDE/FORMETEROL FUMARATE 80/4.5 mcg INHALER IH SCH ×2 (11:00→21:18)
[2022-04-11] MEDS: SODIUM CHLORIDE 0.45% 1,000 ML IV SCH (11:01)
[2022-04-11] MEDS: DONEPEZIL HCL 10 MG TABLET (FP) PO SCH (21:18)
[2022-04-12] MEDS: SODIUM CHLORIDE 0.45% 1,000 ML IV SCH ×2 (02:01→10:00)
[2022-04-12] MEDS: DOXYCYCLINE HYCLATE 100 MG CAPSULE PO SCH ×2 (09:40→17:55)
[2022-04-12] MEDS: MEMANTINE HCL 5 MG TABLET (UD) PO SCH (09:40)
[2022-04-12] MEDS: REMDESIVIR 100 MG in SODIUM CHLORIDE 250 ML IVPB SCH (09:40)
[2022-04-12] MEDS: ENOXAPARIN NA (PORCINE) 40 MG/0.4 ML DISP.SYRIN SQ SCH (09:40)
[2022-04-12] MEDS: DEXAMETHASONE SOD PHOSPHATE 10 MG/1 ML VIAL IVPUSH SCH (09:40)
[2022-04-12] MEDS: BUDESONIDE/FORMETEROL FUMARATE 80/4.5 mcg INHALER IH SCH ×2 (09:41→21:40)
[2022-04-12 12:05] LABS: BASO % 0.3 % (0-2.0); HEMATOCRIT 34.7 % (32.4-45.2); HEMOGLOBIN 11.6 GM/dL (10.7-15.3); LYMPH % 21.3 % (8-40); MCH 30.1 pg (25.7-33.7); MCHC 33.5 g/dl (32.0-36.0); MEAN CELL VOLUME 89.7 fl (80-96); MEAN PLT VOLUME 7.8 fl (7.5-11.1); MONO % 7.3 % (3.8-10.2); NEUT % 71.1 % (42.8-82.8); PLATELET COUNT 388 10^3/uL (134-434); RBC 3.87 M/mm3 (3.60-5.2); RDW 15.2 % (11.6-15.6); WHITE BLOOD COUNT 10.1 K/mm3 (4.0-10.0)
[2022-04-12 12:36] LABS: CALCIUM 8.1 mg/dL (8.5-10.1)
[2022-04-12 12:37] LABS: ALBUMIN 2.3 g/dl (3.4-5.0); BLOOD UREA NITROGEN 17.8 mg/dL (7-18); MAGNESIUM 1.9 mg/dL (1.8-2.4)
[2022-04-12 12:40] LABS: CREATININE 0.5 mg/dL (0.55-1.3)
[2022-04-12 12:41] LABS: TOT PROT 5.2 g/dl (6.4-8.2)
[2022-04-12] MEDS: DONEPEZIL HCL 10 MG TABLET (FP) PO SCH (21:39)
[2022-04-13] MEDS: DEXAMETHASONE SOD PHOSPHATE 10 MG/1 ML VIAL IVPUSH SCH (10:40)
[2022-04-13] MEDS: MEMANTINE HCL 5 MG TABLET (UD) PO SCH (10:40)
[2022-04-13] MEDS: DOXYCYCLINE HYCLATE 100 MG CAPSULE PO SCH ×2 (10:40→17:08)
[2022-04-13] MEDS: REMDESIVIR 100 MG in SODIUM CHLORIDE 250 ML IVPB SCH (10:40)
[2022-04-13] MEDS: ENOXAPARIN NA (PORCINE) 40 MG/0.4 ML DISP.SYRIN SQ SCH (10:41)
[2022-04-13] MEDS: BUDESONIDE/FORMETEROL FUMARATE 80/4.5 mcg INHALER IH SCH ×2 (10:54→21:46)
[2022-04-13 11:25] LABS: BASO % 0.1 % (0-2.0); EOS % 0.2 % (0-4.5); HEMATOCRIT 35.8 % (32.4-45.2); HEMOGLOBIN 12.1 GM/dL (10.7-15.3); LYMPH % 19.2 % (8-40); MCH 30.2 pg (25.7-33.7); MCHC 33.8 g/dl (32.0-36.0); MEAN CELL VOLUME 89.3 fl (80-96); MEAN PLT VOLUME 7.4 fl (7.5-11.1); MONO % 9.4 % (3.8-10.2); NEUT % 71.1 % (42.8-82.8); PLATELET COUNT 416 10^3/uL (134-434); RBC 4.01 M/mm3 (3.60-5.2); RDW 15.1 % (11.6-15.6); WHITE BLOOD COUNT 13.2 K/mm3 (4.0-10.0)
[2022-04-13 11:34] LABS: ALBUMIN 2.3 g/dl (3.4-5.0); BLOOD UREA NITROGEN 24.1 mg/dL (7-18); CALCIUM 8.4 mg/dL (8.5-10.1); MAGNESIUM 1.8 mg/dL (1.8-2.4)
[2022-04-13 11:37] LABS: CREATININE 0.4 mg/dL (0.55-1.3)
[2022-04-13 11:39] LABS: BILIRUBIN,TOTAL 0.2 mg/dL (0.2-1)
[2022-04-13] MEDS: SODIUM CHLORIDE 0.45% 1,000 ML IV SCH (12:08)
[2022-04-13] MEDS ORDERED: POTASSIUM CHLORIDE ORAL LIQUID 20 MEQ/15 ML PO ONE (12:30)
[2022-04-13] MEDS: ALBUTEROL SO4 2.5/IPRATROPIUM 0.5 INH SOL 3 ML VIAL.NEB. NEB SCH (20:00)
[2022-04-13] MEDS: DONEPEZIL HCL 10 MG TABLET (FP) PO SCH (21:46)
[2022-04-14] MEDS: ALBUTEROL SO4 2.5/IPRATROPIUM 0.5 INH SOL 3 ML VIAL.NEB. NEB SCH ×5 (07:13→16:21)
[2022-04-14] MEDS ORDERED: POTASSIUM CHLORIDE TABS 20 MEQ TABLET.ER (FP) PO ONE (10:15)
[2022-04-14 10:51] LABS: BASO % 0.1 % (0-2.0); EOS % 0.4 % (0-4.5); HEMATOCRIT 32.8 % (32.4-45.2); HEMOGLOBIN 11.2 GM/dL (10.7-15.3); LYMPH % 21.5 % (8-40); MCH 30.3 pg (25.7-33.7); MCHC 34.2 g/dl (32.0-36.0); MEAN CELL VOLUME 88.5 fl (80-96); MEAN PLT VOLUME 7.1 fl (7.5-11.1); MONO % 10.3 % (3.8-10.2); NEUT % 67.7 % (42.8-82.8); PLATELET COUNT 430 10^3/uL (134-434); RBC 3.71 M/mm3 (3.60-5.2); RDW 14.8 % (11.6-15.6); WHITE BLOOD COUNT 12.5 K/mm3 (4.0-10.0)
[2022-04-14] MEDS: DEXAMETHASONE SOD PHOSPHATE 10 MG/1 ML VIAL IVPUSH SCH (11:05)
[2022-04-14] MEDS: ENOXAPARIN NA (PORCINE) 40 MG/0.4 ML DISP.SYRIN SQ SCH (11:06)
[2022-04-14] MEDS: DOXYCYCLINE HYCLATE 100 MG CAPSULE PO SCH ×2 (11:07→18:00)
[2022-04-14] MEDS: MEMANTINE HCL 5 MG TABLET (UD) PO SCH (11:08)
[2022-04-14] MEDS: BUDESONIDE/FORMETEROL FUMARATE 80/4.5 mcg INHALER IH SCH ×2 (11:09→22:07)
[2022-04-14 12:11] LABS: ALBUMIN 2.2 g/dl (3.4-5.0); BLOOD UREA NITROGEN 20.2 mg/dL (7-18); CALCIUM 8.4 mg/dL (8.5-10.1); MAGNESIUM 1.8 mg/dL (1.8-2.4)
[2022-04-14 12:14] LABS: CREATININE 0.5 mg/dL (0.55-1.3)
[2022-04-14 12:15] LABS: BILIRUBIN,TOTAL 0.2 mg/dL (0.2-1); TOT PROT 4.8 g/dl (6.4-8.2)
[2022-04-14] MEDS: DONEPEZIL HCL 10 MG TABLET (FP) PO SCH (22:06)
[2022-04-15] MEDS: ALBUTEROL SO4 2.5/IPRATROPIUM 0.5 INH SOL 3 ML VIAL.NEB. NEB SCH ×5 (01:57→20:25)
[2022-04-15] MEDS: DEXAMETHASONE 4 MG TABLET (FP) PO SCH (09:35)
[2022-04-15] MEDS: DOXYCYCLINE HYCLATE 100 MG CAPSULE PO SCH ×2 (09:35→17:11)
[2022-04-15] MEDS: MEMANTINE HCL 5 MG TABLET (UD) PO SCH (09:35)
[2022-04-15] MEDS: ENOXAPARIN NA (PORCINE) 40 MG/0.4 ML DISP.SYRIN SQ SCH (09:35)
[2022-04-15] MEDS: BUDESONIDE/FORMETEROL FUMARATE 80/4.5 mcg INHALER IH SCH ×2 (11:52→21:47)
[2022-04-15] MEDS: DONEPEZIL HCL 10 MG TABLET (FP) PO SCH (21:47)
[2022-04-16 05:41] VITALS: BP 108/52; PULSE 69; RESP 17; TEMP 98
[2022-04-16] MEDS: ALBUTEROL SO4 2.5/IPRATROPIUM 0.5 INH SOL 3 ML VIAL.NEB. NEB SCH ×2 (08:00→12:36)
[2022-04-16] MEDS: MEMANTINE HCL 5 MG TABLET (UD) PO SCH (08:59)
[2022-04-16] MEDS: BUDESONIDE/FORMETEROL FUMARATE 80/4.5 mcg INHALER IH SCH (08:59)
[2022-04-16] MEDS: DOXYCYCLINE HYCLATE 100 MG CAPSULE PO SCH (08:59)
[2022-04-16] MEDS: DEXAMETHASONE 4 MG TABLET (FP) PO SCH (08:59)
[2022-04-16] MEDS: ENOXAPARIN NA (PORCINE) 40 MG/0.4 ML DISP.SYRIN SQ SCH (09:10)
[2022-04-16 11:04] LABS: HEMATOCRIT 35.2 % (32.4-45.2); HEMOGLOBIN 11.6 GM/dL (10.7-15.3); MCH 29.8 pg (25.7-33.7); MCHC 33.1 g/dl (32.0-36.0); MEAN CELL VOLUME 90.1 fl (80-96); PLATELET COUNT 493 10^3/uL (134-434); RDW 15.3 % (11.6-15.6); WHITE BLOOD COUNT 16.8 K/mm3 (4.0-10.0)
[2022-04-16 11:41] LABS: CALCIUM 8.8 mg/dL (8.5-10.1)
[2022-04-16 11:42] LABS: ALBUMIN 2.4 g/dl (3.4-5.0); BLOOD UREA NITROGEN 25.4 mg/dL (7-18)
[2022-04-16 11:45] LABS: CREATININE 0.5 mg/dL (0.55-1.3)
[2022-04-16 11:46] LABS: BILIRUBIN,TOTAL 0.4 mg/dL (0.2-1)
[2022-04-16 11:47] LABS: TOT PROT 5.2 g/dl (6.4-8.2)
[2022-04-16 11:53] LABS: ANISOCYTOSIS 0; HELMET CELLS 0; HOWELL-JOLLY BODIES 0; MACROCYTOSIS 0; OVALOCYTE 0; ROULEAU 0; SICKELED CELLS 0; TARGET CELLS 0; TEAR DROP CELLS 0; TOXIC GRANULATION 0
== END 2022-04-16 14:01 | DRG 177 ==
LOC: JER 18:52 → JERBED 04-09 03:21 → UNDOADMOB 04-09 03:21 → OBSVTOIN 04-09 13:40 → INTOOBSV 04-09 13:40 → JERBED 04-09 13:40 → J6S 04-09 20:48
PROVIDERS: ADMIT Family Medicine; ATTEND Nurse Practitioner Family
PROC: XW033E5 Introduction of Remdesivir Anti-infective into Peripheral Vein, Percutaneous Approach, New Technology Group 5 (ICD-10-PCS; principal; 2022-04-09)
DX: U07.1 COVID-19 (principal); J12.82 Pneumonia due to coronavirus disease 2019; J15.9 Unspecified bacterial pneumonia; J96.01 Acute respiratory failure with hypoxia; N39.0 Urinary tract infection, site not specified; N17.9 Acute kidney failure, unspecified; E87.0 Hyperosmolality and hypernatremia; F03.90 Unspecified dementia, unspecified severity, without behavioral disturbance, psychotic disturbance, mood disturbance, and anxiety; I10 Essential (primary) hypertension; E78.5 Hyperlipidemia, unspecified; D72.829 Elevated white blood cell count, unspecified
CPT/HCPCS: 0241U-QW; 36415; 71045-TC-FY; 80048; 80053; 81003; 83735; 84100; 84484; 85025; 85027; 85610; 85730; 86140; 87040; 87086; 87186; 93005; 93010; 94640; 94761; 97116-GP; 97161-GP; 99285-25; C9399; J1100

== ENCOUNTER 2022-11-10 17:31 | Inpatient (IN) | payer OTHER, BC ==
[2022-11-10 19:04] LABS: BASO % 0.4 % (0-2.0); EOS % 1.4 % (0-4.5); HEMATOCRIT 36.3 % (32.4-45.2); HEMOGLOBIN 12.1 GM/dL (10.7-15.3); LYMPH % 20.6 % (8-40); MCH 30.8 pg (25.7-33.7); MCHC 33.5 g/dl (32.0-36.0); MEAN CELL VOLUME 91.9 fl (80-96); MEAN PLT VOLUME 7.5 fl (7.5-11.1); MONO % 6.8 % (3.8-10.2); NEUT % 70.8 % (42.8-82.8); PLATELET COUNT 333 10^3/uL (134-434); RBC 3.95 M/mm3 (3.60-5.2); RDW 15.1 % (11.6-15.6); WHITE BLOOD COUNT 8.4 K/mm3 (4.0-10.0)
[2022-11-10 19:15] LABS: INR 1.01 (0.83-1.09); PROTHROMBIN TIME (PATIENT) 11.7 SEC (9.7-13.0)
[2022-11-10 19:18] LABS: ACTIVATED PTT 25.9 SECONDS (25.2-36.5)
[2022-11-10 19:28] LABS: POTASSIUM 4.1 mmol/L (3.5-5.1)
[2022-11-10 19:30] LABS: CALCIUM 9.2 mg/dL (8.5-10.1)
[2022-11-10 19:31] LABS: ALBUMIN 3.4 g/dl (3.4-5.0); BLOOD UREA NITROGEN 29.1 mg/dL (7-18)
[2022-11-10 19:34] LABS: CREATININE 0.6 mg/dL (0.55-1.3)
[2022-11-10 19:35] LABS: BILIRUBIN,TOTAL 0.2 mg/dL (0.2-1); TOT PROT 6.6 g/dl (6.4-8.2)
[2022-11-11] MEDS: APIXABAN 5 MG TABLET PO SCH ×3 (00:32→21:58)
[2022-11-11 01:28] VITALS: RESP 18; BMI 21.4
[2022-11-11] MEDS: MEMANTINE HCL 5 MG TABLET (UD) PO SCH ×2 (09:48→21:58)
[2022-11-11 10:36] LABS: HEMATOCRIT 33.8 % (32.4-45.2); HEMOGLOBIN 11.1 GM/dL (10.7-15.3); MCH 30.9 pg (25.7-33.7); MCHC 32.8 g/dl (32.0-36.0); MEAN CELL VOLUME 94.2 fl (80-96); MEAN PLT VOLUME 8.6 fl (7.5-11.1); PLATELET COUNT 266 10^3/uL (134-434); RBC 3.59 M/mm3 (3.60-5.2); RDW 14.6 % (11.6-15.6); WHITE BLOOD COUNT 7.6 K/mm3 (4.0-10.0)
[2022-11-11 10:57] LABS: POTASSIUM 4.4 mmol/L (3.5-5.1)
[2022-11-11 11:05] LABS: CALCIUM 8.7 mg/dL (8.5-10.1)
[2022-11-11 11:06] LABS: BLOOD UREA NITROGEN 20.2 mg/dL (7-18)
[2022-11-11 11:09] LABS: CREATININE 0.4 mg/dL (0.55-1.3)
[2022-11-11 11:10] LABS: BILIRUBIN,TOTAL 0.7 mg/dL (0.2-1); TOT PROT 5.7 g/dl (6.4-8.2)
[2022-11-11] MEDS: DONEPEZIL HCL 10 MG TABLET (FP) PO SCH (21:58)
[2022-11-12 09:06] LABS: BASO % 0.9 % (0-2.0); EOS % 2.7 % (0-4.5); HEMATOCRIT 37.8 % (32.4-45.2); HEMOGLOBIN 12.3 GM/dL (10.7-15.3); LYMPH % 23.2 % (8-40); MCH 30.6 pg (25.7-33.7); MCHC 32.6 g/dl (32.0-36.0); MEAN PLT VOLUME 8.7 fl (7.5-11.1); NEUT % 66.2 % (42.8-82.8); PLATELET COUNT 227 10^3/uL (134-434); RBC 4.02 M/mm3 (3.60-5.2); RDW 14.6 % (11.6-15.6); WHITE BLOOD COUNT 7.6 K/mm3 (4.0-10.0)
[2022-11-12 09:42] LABS: POTASSIUM 4.1 mmol/L (3.5-5.1)
[2022-11-12 10:08] LABS: CALCIUM 8.9 mg/dL (8.5-10.1)
[2022-11-12] MEDS: APIXABAN 5 MG TABLET PO SCH ×2 (10:11→21:03)
[2022-11-12] MEDS: MEMANTINE HCL 5 MG TABLET (UD) PO SCH ×2 (10:11→21:03)
[2022-11-12 10:13] LABS: CREATININE 0.4 mg/dL (0.55-1.3)
[2022-11-12] MEDS: DONEPEZIL HCL 10 MG TABLET (FP) PO SCH (21:04)
[2022-11-13 05:13] VITALS: PULSE 62
[2022-11-13] MEDS: MEMANTINE HCL 5 MG TABLET (UD) PO SCH (09:07)
[2022-11-13] MEDS: APIXABAN 5 MG TABLET PO SCH (09:07)
[2022-11-13 12:18] VITALS: BP 110/50; TEMP 98
== END 2022-11-13 14:51 | disposition home health service (06) | DRG 301 ==
LOC: JER 17:31 → JERBED 21:20 → OBSVTOIN 22:34 → J6S 23:43
PROVIDERS: ADMIT Internal Medicine; ATTEND Internal Medicine
DX: I82.432 Acute embolism and thrombosis of left popliteal vein (principal); G30.9 Alzheimer's disease, unspecified; F02.80 Dementia in other diseases classified elsewhere, unspecified severity, without behavioral disturbance, psychotic disturbance, mood disturbance, and anxiety; E78.5 Hyperlipidemia, unspecified; R91.1 Solitary pulmonary nodule; R29.6 Repeated falls; M79.89 Other specified soft tissue disorders
CPT/HCPCS: 36415; 71275-TC; 80048; 80053; 83880; 84484; 85025; 85027; 85610; 85730; 93005; 93010; 93970-TC; 97116-GP; 97162-GP; 99285-25; G0378; Q9967

== ENCOUNTER 2023-04-01 10:19 | Inpatient (IN) | payer OTHER, BC ==
[2023-04-01 11:47] LABS: BASO % 0.3 % (0-2.0); EOS % 0.3 % (0-4.5); HEMATOCRIT 39.5 % (32.4-45.2); HEMOGLOBIN 12.9 GM/dL (10.7-15.3); LYMPH % 10.1 % (8-40); MCH 30.9 pg (25.7-33.7); MCHC 32.8 g/dl (32.0-36.0); MEAN CELL VOLUME 94.2 fl (80-96); MONO % 7.4 % (3.8-10.2); NEUT % 81.9 % (42.8-82.8); PLATELET COUNT 304 10^3/uL (134-434); RBC 4.19 M/mm3 (3.60-5.2); RDW 14.7 % (11.6-15.6); WHITE BLOOD COUNT 8.1 K/mm3 (4.0-10.0)
[2023-04-01 11:54] LABS: INR 1.13 (0.83-1.09); PROTHROMBIN TIME (PATIENT) 13.1 SEC (9.7-13.0)
[2023-04-01 12:11] LABS: EPI CELLS >36 /uL (0-25.1); HYALINE CASTS 1 /uL (0-3.1); PH,URINE 6.5 (5.0-8.0); URINE APPEARANCE CLEAR; URINE BACTERIA 7856 /uL (0-1359); URINE BILIRUBIN NEGATIVE (NEGATIVE); URINE COLOR YELLOW; URINE GLUCOSE (UA) NEGATIVE (NEGATIVE); URINE KETONE TRACE (NEGATIVE); URINE LEUK ESTERASE TRACE (NEGATIVE); URINE NITRITE NEGATIVE (NEGATIVE); URINE PROTEIN NEGATIVE (NEGATIVE); URINE RBC 35 /uL (0-23.9); URINE WBC 41 /uL (0-25.8)
[2023-04-01 12:12] LABS: POTASSIUM 3.9 mmol/L (3.5-5.1)
[2023-04-01 12:14] LABS: CALCIUM 8.9 mg/dL (8.5-10.1)
[2023-04-01 12:15] LABS: ALBUMIN 3.4 g/dl (3.4-5.0); BLOOD UREA NITROGEN 21.5 mg/dL (7-18)
[2023-04-01 12:18] LABS: CREATININE 0.6 mg/dL (0.55-1.3)
[2023-04-01 12:21] LABS: BILIRUBIN,TOTAL 0.4 mg/dL (0.2-1); TOT PROT 6.5 g/dl (6.4-8.2)
[2023-04-01] MEDS ORDERED: ACETAMINOPHEN 325 MG TABLET (FP) PO PRN (15:10)
[2023-04-01 16:00] LABS: EPI CELLS 6 /uL (0-25.1); HYALINE CASTS 0 /uL (0-3.1); URINE APPEARANCE CLEAR; URINE BACTERIA 4690 /uL (0-1359); URINE BILIRUBIN NEGATIVE (NEGATIVE); URINE COLOR YELLOW; URINE GLUCOSE (UA) NEGATIVE (NEGATIVE); URINE KETONE 1+ (NEGATIVE); URINE LEUK ESTERASE 1+ (NEGATIVE); URINE NITRITE NEGATIVE (NEGATIVE); URINE PROTEIN NEGATIVE (NEGATIVE); URINE RBC 51 /uL (0-23.9); URINE WBC 43 /uL (0-25.8)
[2023-04-01 20:26] VITALS: BMI 19.5
[2023-04-01] MEDS: DONEPEZIL HCL 10 MG TABLET (FP) PO SCH (21:10)
[2023-04-01] MEDS: MEMANTINE HCL 5 MG TABLET (UD) PO SCH (21:10)
[2023-04-01] MEDS: APIXABAN 5 MG TABLET PO SCH (21:10)
[2023-04-02 07:46] LABS: HEMATOCRIT 37.3 % (32.4-45.2); HEMOGLOBIN 12.7 GM/dL (10.7-15.3); MCH 31.4 pg (25.7-33.7); MCHC 34.1 g/dl (32.0-36.0); MEAN CELL VOLUME 92.2 fl (80-96); MEAN PLT VOLUME 7.4 fl (7.5-11.1); PLATELET COUNT 292 10^3/uL (134-434); RBC 4.04 M/mm3 (3.60-5.2); RDW 14.6 % (11.6-15.6); WHITE BLOOD COUNT 6.3 K/mm3 (4.0-10.0)
[2023-04-02 08:02] LABS: POTASSIUM 3.7 mmol/L (3.5-5.1)
[2023-04-02 08:12] LABS: BLOOD UREA NITROGEN 13.8 mg/dL (7-18); CALCIUM 8.8 mg/dL (8.5-10.1)
[2023-04-02 08:16] LABS: CREATININE 0.4 mg/dL (0.55-1.3)
[2023-04-02] MEDS ORDERED: CEFTRIAXONE 1 GM in DEXTROSE 5%-WATER - 50 ML IVPB SCH (10:00)
[2023-04-02] MEDS ORDERED: REMDESIVIR 200 MG in SODIUM CHLORIDE 250 ML IVPB ONE (10:00)
[2023-04-02] MEDS: LACTATED RINGERS SOLUTION 1,000 ML/1,000 ML INFUS.BAG IV SCH ×2 (10:56→23:37)
[2023-04-02] MEDS: APIXABAN 5 MG TABLET PO SCH ×2 (10:57→21:23)
[2023-04-02] MEDS: MEMANTINE HCL 5 MG TABLET (UD) PO SCH ×2 (10:57→21:22)
[2023-04-02] MEDS: DONEPEZIL HCL 10 MG TABLET (FP) PO SCH (21:23)
[2023-04-02] MEDS: MELATONIN 5 MG TABLETS PO PRN (21:23)
[2023-04-03 07:20] LABS: POTASSIUM 3.9 mmol/L (3.5-5.1)
[2023-04-03 07:30] LABS: CALCIUM 8.3 mg/dL (8.5-10.1)
[2023-04-03 07:31] LABS: BLOOD UREA NITROGEN 18.1 mg/dL (7-18)
[2023-04-03 07:34] LABS: CREATININE 0.5 mg/dL (0.55-1.3)
[2023-04-03 07:35] LABS: BILIRUBIN,TOTAL 0.4 mg/dL (0.2-1); TOT PROT 5.1 g/dl (6.4-8.2)
[2023-04-03 07:50] LABS: ALBUMIN 2.4 g/dl (3.4-5.0)
[2023-04-03] MEDS ORDERED: REMDESIVIR 100 MG in SODIUM CHLORIDE 270 ML IVPB ONE (10:00)
[2023-04-03] MEDS: APIXABAN 5 MG TABLET PO SCH ×2 (10:07→21:32)
[2023-04-03] MEDS: LACTATED RINGERS SOLUTION 1,000 ML/1,000 ML INFUS.BAG IV SCH (10:07)
[2023-04-03] MEDS: MEMANTINE HCL 5 MG TABLET (UD) PO SCH ×2 (10:07→21:32)
[2023-04-03] MEDS: MELATONIN 5 MG TABLETS PO PRN (21:32)
[2023-04-03] MEDS: DONEPEZIL HCL 10 MG TABLET (FP) PO SCH (21:32)
[2023-04-04 07:31] LABS: BASO % 0.5 % (0-2.0); EOS % 4.2 % (0-4.5); HEMATOCRIT 34.2 % (32.4-45.2); HEMOGLOBIN 11.6 GM/dL (10.7-15.3); LYMPH % 30.1 % (8-40); MCH 31.4 pg (25.7-33.7); MCHC 33.9 g/dl (32.0-36.0); MEAN CELL VOLUME 92.7 fl (80-96); MEAN PLT VOLUME 7.3 fl (7.5-11.1); MONO % 8.5 % (3.8-10.2); NEUT % 56.7 % (42.8-82.8); PLATELET COUNT 303 10^3/uL (134-434); RBC 3.69 M/mm3 (3.60-5.2); RDW 14.5 % (11.6-15.6); WHITE BLOOD COUNT 6.5 K/mm3 (4.0-10.0)
[2023-04-04 08:57] LABS: POTASSIUM 3.8 mmol/L (3.5-5.1)
[2023-04-04 09:13] LABS: BLOOD UREA NITROGEN 19.6 mg/dL (7-18); CALCIUM 8.3 mg/dL (8.5-10.1)
[2023-04-04 09:14] LABS: ALBUMIN 2.5 g/dl (3.4-5.0)
[2023-04-04 09:16] LABS: PHOSPHOROUS 4.1 mg/dL (2.5-4.9)
[2023-04-04 09:17] LABS: CREATININE 0.5 mg/dL (0.55-1.3); TOT PROT 5.2 g/dl (6.4-8.2)
[2023-04-04 09:18] LABS: BILIRUBIN,TOTAL 0.4 mg/dL (0.2-1)
[2023-04-04] MEDS ORDERED: REMDESIVIR 100 MG in SODIUM CHLORIDE 270 ML IVPB ONE (10:00)
[2023-04-04] MEDS ORDERED: REMDESIVIR 200 MG in SODIUM CHLORIDE 250 ML IVPB ONE (10:00)
[2023-04-04] MEDS: APIXABAN 5 MG TABLET PO SCH (11:25)
[2023-04-04] MEDS: MEMANTINE HCL 5 MG TABLET (UD) PO SCH (11:25)
[2023-04-04 11:48] VITALS: TEMP 97.7
[2023-04-04 15:33] VITALS: BP 123/58; PULSE 93; RESP 18
== END 2023-04-04 18:19 | disposition home or self-care (01) | DRG 179 ==
LOC: JER 10:19 → JERBED 14:26 → J4W 18:17 → OBSVTOIN 04-02 13:40
PROVIDERS: ADMIT Internal Medicine; ATTEND Internal Medicine
PROC: XW033E5 Introduction of Remdesivir Anti-infective into Peripheral Vein, Percutaneous Approach, New Technology Group 5 (ICD-10-PCS; principal; 2023-04-02)
DX: U07.1 COVID-19 (principal); I10 Essential (primary) hypertension; E78.5 Hyperlipidemia, unspecified; R29.6 Repeated falls; F03.90 Unspecified dementia, unspecified severity, without behavioral disturbance, psychotic disturbance, mood disturbance, and anxiety
CPT/HCPCS: 0241U-QW; 36415; 70450-TC; 71045-TC-FY; 72125-TC; 72170-TC-FY; 72192-TC; 73521-TC-FY; 80048; 80053; 81003; 83735; 84100; 84484; 85025; 85027; 85610; 85730; 86140; 86850; 86900; 86901; 87086; 87186; 93005; 93010; 97116-GP; 97162-GP; 99284-25; G0378; J0248

== ENCOUNTER 2023-05-07 16:41 | Inpatient (IN) | payer OTHER, BC ==
[2023-05-07] MEDS ORDERED: ACETAMINOPHEN 1000 MG/100 ML BAG IVPB ONE (17:37)
[2023-05-07] MEDS ORDERED: ACETAMINOPHEN INJECTION 100 ML IVPB ONE (17:52)
[2023-05-07 18:30] LABS: BASO % 0.6 % (0-2.0); EOS % 0.8 % (0-4.5); HEMATOCRIT 39.7 % (32.4-45.2); HEMOGLOBIN 13.2 GM/dL (10.7-15.3); LYMPH % 14.1 % (8-40); MCH 31.2 pg (25.7-33.7); MCHC 33.3 g/dl (32.0-36.0); MEAN CELL VOLUME 93.7 fl (80-96); MEAN PLT VOLUME 6.9 fl (7.5-11.1); MONO % 7.2 % (3.8-10.2); NEUT % 77.3 % (42.8-82.8); PLATELET COUNT 432 10^3/uL (134-434); RBC 4.24 M/mm3 (3.60-5.2); RDW 14.6 % (11.6-15.6); WHITE BLOOD COUNT 10.1 K/mm3 (4.0-10.0)
[2023-05-07 18:45] LABS: INR 1.33 (0.83-1.09); PROTHROMBIN TIME (PATIENT) 15.4 SEC (9.7-13.0)
[2023-05-07 18:48] LABS: ACTIVATED PTT 35.5 SECONDS (25.2-36.5)
[2023-05-07 18:53] LABS: POTASSIUM 4.2 mmol/L (3.5-5.1)
[2023-05-07 18:54] LABS: ALBUMIN 2.8 g/dl (3.4-5.0); CALCIUM 9.1 mg/dL (8.5-10.1)
[2023-05-07 18:56] LABS: BLOOD UREA NITROGEN 20.3 mg/dL (7-18); MAGNESIUM 2.1 mg/dL (1.8-2.4)
[2023-05-07 18:57] LABS: CREATININE 0.4 mg/dL (0.55-1.3)
[2023-05-07 19:00] LABS: BILIRUBIN,TOTAL 0.2 mg/dL (0.2-1); TOT PROT 6.1 g/dl (6.4-8.2)
[2023-05-08] MEDS ORDERED: SODIUM CHLORIDE 500 ML IV STA (01:38)
[2023-05-08] MEDS ORDERED: ACETAMINOPHEN 325 MG TABLET (FP) PO PRN (01:42)
[2023-05-08] MEDS ORDERED: DOCUSATE SODIUM 100 MG CAPSULE (FP) PO PRN (01:42)
[2023-05-08 08:25] LABS: URINE APPEARANCE TURBID; URINE BILIRUBIN NEGATIVE (NEGATIVE); URINE COLOR YELLOW; URINE GLUCOSE (UA) NEGATIVE (NEGATIVE); URINE KETONE 1+ (NEGATIVE); URINE LEUK ESTERASE NEGATIVE (NEGATIVE); URINE NITRITE NEGATIVE (NEGATIVE); URINE PROTEIN NEGATIVE (NEGATIVE)
[2023-05-08] MEDS: MEMANTINE HCL 10 MG TABLET (FP) PO SCH (10:44)
[2023-05-08] MEDS: DONEPEZIL HCL 10 MG TABLET (FP) PO SCH (10:44)
[2023-05-08] MEDS ORDERED: TOPIRAMATE 25 MG TABLET PO ONE (11:30)
[2023-05-09] MEDS: MEMANTINE HCL 10 MG TABLET (FP) PO SCH ×3 (00:15→21:24)
[2023-05-09] MEDS ORDERED: APIXABAN 5 MG TABLET PO SCH (10:00)
[2023-05-09] MEDS: DONEPEZIL HCL 10 MG TABLET (FP) PO SCH (10:11)
[2023-05-09 16:06] VITALS: BMI 18.2
[2023-05-09] MEDS ORDERED: SODIUM CHLORIDE 1,000 ML IV SCH (16:45)
[2023-05-09] MEDS: APIXABAN 2.5 MG TABLET PO SCH ×2 (19:04→21:24)
[2023-05-10 09:29] LABS: HEMATOCRIT 34.8 % (32.4-45.2); HEMOGLOBIN 11.7 GM/dL (10.7-15.3); MCHC 33.8 g/dl (32.0-36.0); MEAN CELL VOLUME 91.9 fl (80-96); PLATELET COUNT 385 10^3/uL (134-434); RBC 3.78 M/mm3 (3.60-5.2); RDW 14.2 % (11.6-15.6); WHITE BLOOD COUNT 11.2 K/mm3 (4.0-10.0)
[2023-05-10] MEDS: DONEPEZIL HCL 10 MG TABLET (FP) PO SCH (09:29)
[2023-05-10] MEDS: APIXABAN 2.5 MG TABLET PO SCH ×2 (09:29→22:36)
[2023-05-10] MEDS: MEMANTINE HCL 10 MG TABLET (FP) PO SCH ×2 (09:30→22:36)
[2023-05-10] MEDS ORDERED: DEXTROSE 5%-NORMAL SALINE 1,000 ML IV SCH (13:45)
[2023-05-11] MEDS: APIXABAN 2.5 MG TABLET PO SCH ×2 (09:00→21:26)
[2023-05-11] MEDS: MEMANTINE HCL 10 MG TABLET (FP) PO SCH ×2 (09:01→21:26)
[2023-05-11 09:48] LABS: BASO % 0.5 % (0-2.0); HEMATOCRIT 34.9 % (32.4-45.2); LYMPH % 15.3 % (8-40); MCH 31.4 pg (25.7-33.7); MCHC 34.3 g/dl (32.0-36.0); MEAN CELL VOLUME 91.4 fl (80-96); MEAN PLT VOLUME 6.9 fl (7.5-11.1); MONO % 5.1 % (3.8-10.2); NEUT % 77.1 % (42.8-82.8); PLATELET COUNT 400 10^3/uL (134-434); RBC 3.82 M/mm3 (3.60-5.2); RDW 14.2 % (11.6-15.6); WHITE BLOOD COUNT 8.7 K/mm3 (4.0-10.0)
[2023-05-11 11:13] LABS: POTASSIUM 3.5 mmol/L (3.5-5.1)
[2023-05-11 11:14] LABS: CALCIUM 8.2 mg/dL (8.5-10.1)
[2023-05-11 11:15] LABS: MAGNESIUM 1.8 mg/dL (1.8-2.4)
[2023-05-11 11:18] LABS: CREATININE 0.5 mg/dL (0.55-1.3)
[2023-05-11 11:20] LABS: PHOSPHOROUS 2.6 mg/dL (2.5-4.9)
[2023-05-11] MEDS: ACETAMINOPHEN 325 MG TABLET (FP) PO SCH ×2 (14:52→22:03)
[2023-05-11] MEDS: DONEPEZIL HCL 10 MG TABLET (FP) PO SCH (21:26)
[2023-05-12] MEDS: ACETAMINOPHEN 325 MG TABLET (FP) PO SCH (06:26)
[2023-05-12] MEDS ORDERED: ACETAMINOPHEN 325 MG TABLET (FP) PO PRN (08:13)
[2023-05-12] MEDS: MEMANTINE HCL 10 MG TABLET (FP) PO SCH ×2 (09:15→21:56)
[2023-05-12] MEDS: APIXABAN 2.5 MG TABLET PO SCH ×2 (09:15→21:56)
[2023-05-12] MEDS: DONEPEZIL HCL 10 MG TABLET (FP) PO SCH (21:55)
[2023-05-13] MEDS: APIXABAN 2.5 MG TABLET PO SCH (10:06)
[2023-05-13] MEDS: MEMANTINE HCL 10 MG TABLET (FP) PO SCH (10:06)
[2023-05-13 17:14] VITALS: BP 120/81; PULSE 114; RESP 20; TEMP 98.7
== END 2023-05-13 18:43 | DRG 103 ==
LOC: JER 16:41 → JERBED 23:38 → J5S 05-08 18:48 → OBSVTOIN 05-09 09:05
PROVIDERS: ADMIT Internal Medicine
DX: R51.9 Headache, unspecified (principal); E44.0 Moderate protein-calorie malnutrition; Z68.1 Body mass index [BMI] 19.9 or less, adult; E78.5 Hyperlipidemia, unspecified; R29.6 Repeated falls; F03.90 Unspecified dementia, unspecified severity, without behavioral disturbance, psychotic disturbance, mood disturbance, and anxiety; E86.0 Dehydration; Z86.718 Personal history of other venous thrombosis and embolism
CPT/HCPCS: 0241U-QW; 36415; 70450-TC; 80048; 80053; 81003; 82962; 83735; 84100; 85025; 85027; 85610; 85730; 86850; 86900; 86901; 87086; 93005; 93010; 97116-GP; 97161-GP; 99285-25; G0378

== ENCOUNTER 2023-08-16 13:53 | Inpatient (IN) | payer OTHER, BC ==
[2023-08-16 14:08] VITALS: BMI 25.8
[2023-08-16] MEDS ORDERED: PIPERACILLIN/TAZOB 3.375 GM 3.375 GM/50 ML BAG IVPB ONE (15:21)
[2023-08-16] MEDS ORDERED: ACETAMINOPHEN INJECTION 100 ML IVPB ONE (15:21)
[2023-08-16] MEDS: SODIUM CHLORIDE 0.9% 500 ML INFUS.BAG IV ONE (16:10)
[2023-08-16 16:11] LABS: BASO % 0.3 % (0-2.0); HEMATOCRIT 38.4 % (32.4-45.2); HEMOGLOBIN 12.8 GM/dL (10.7-15.3); LYMPH % 4.8 % (8-40); MCHC 33.2 g/dl (32.0-36.0); MEAN CELL VOLUME 90.3 fl (80-96); MEAN PLT VOLUME 7.1 fl (7.5-11.1); NEUT % 88.9 % (42.8-82.8); PLATELET COUNT 469 10^3/uL (134-434); RBC 4.25 M/mm3 (3.60-5.2); RDW 14.9 % (11.6-15.6); WHITE BLOOD COUNT 16.6 K/mm3 (4.0-10.0)
[2023-08-16] MEDS: PIPERACILLIN/TAZOB 3.375 GM 3.375 GM in DEXTROSE 5%-WATER - 50 ML IVPB ONE (16:11)
[2023-08-16] MEDS: ACETAMINOPHEN 1000 MG/100 ML BAG IVPB ONE (16:11)
[2023-08-16 16:17] LABS: VENOUS BASE EXCESS -0.2 mmol/L (-2-2); VENOUS O2 SATURATION 22.2 % (70-80); VENOUS PCO2 48.7 mmHg (38-52); VENOUS PH 7.345 (7.310-7.410)
[2023-08-16 16:25] LABS: INR 1.13 (0.83-1.09); PROTHROMBIN TIME (PATIENT) 13.1 SEC (9.7-13.0)
[2023-08-16 16:28] LABS: ACTIVATED PTT 31.7 SECONDS (25.2-36.5); CALCIUM 8.9 mg/dL (8.5-10.1)
[2023-08-16 16:29] LABS: BLOOD UREA NITROGEN 21.2 mg/dL (7-18)
[2023-08-16 16:31] LABS: CREATININE 0.5 mg/dL (0.55-1.3)
[2023-08-16 16:33] LABS: BILIRUBIN,TOTAL 0.4 mg/dL (0.2-1); TOT PROT 6.8 g/dl (6.4-8.2)
[2023-08-16] MEDS: VANCOMYCIN PREMIX 1.5 GM 1,500 MG/300 ML BAG IVPB ONE (17:30)
[2023-08-16 17:33] LABS: EPI CELLS 10 /uL (0-25.1); HYALINE CASTS 1 /uL (0-3.1); PH,URINE 5.5 (5.0-8.0); URINE APPEARANCE CLEAR; URINE BACTERIA 49 /uL (0-1359); URINE BILIRUBIN NEGATIVE (NEGATIVE); URINE COLOR YELLOW; URINE GLUCOSE (UA) NEGATIVE (NEGATIVE); URINE KETONE NEGATIVE (NEGATIVE); URINE LEUK ESTERASE NEGATIVE (NEGATIVE); URINE NITRITE NEGATIVE (NEGATIVE); URINE PROTEIN TRACE (NEGATIVE); URINE WBC 13 /uL (0-25.8)
[2023-08-16] MEDS: VANCOMYCIN HCL 1,500 MG in DEXTROSE 5%-WATER - 500 ML IVPB ONE (17:43)
[2023-08-16 18:32] LABS: URINE RBC 111.2 /uL (0-23.9)
[2023-08-16] MEDS ORDERED: ACETAMINOPHEN 1000 MG/100 ML BAG IVPB PRN (21:48)
[2023-08-16] MEDS: SODIUM CHLORIDE 1,000 ML IV SCH (23:06)
[2023-08-16] MEDS: PIPERACILLIN/TAZOB 3.375 GM 3.375 GM in DEXTROSE 5%-WATER - 50 ML IVPB SCH (23:06)
[2023-08-16] MEDS: HEPARIN NA (PORCINE) 5,000 UNITS/ML 1ML VIAL SQ SCH (23:23)
[2023-08-16] MEDS: MEMANTINE HCL 10 MG TABLET (FP) PO SCH (23:36)
[2023-08-17] MEDS: VANCOMYCIN/WATER FOR INJ (PEG) 1,000 MG/200 ML BAG IVPB SCH (05:02)
[2023-08-17 07:06] LABS: BASO % 0.5 % (0-2.0); EOS % 1.1 % (0-4.5); HEMATOCRIT 32.4 % (32.4-45.2); HEMOGLOBIN 10.6 GM/dL (10.7-15.3); LYMPH % 9.8 % (8-40); MCH 29.8 pg (25.7-33.7); MCHC 32.5 g/dl (32.0-36.0); MEAN CELL VOLUME 91.5 fl (80-96); MEAN PLT VOLUME 7.2 fl (7.5-11.1); MONO % 6.8 % (3.8-10.2); NEUT % 81.8 % (42.8-82.8); PLATELET COUNT 361 10^3/uL (134-434); RBC 3.54 M/mm3 (3.60-5.2); RDW 14.4 % (11.6-15.6); WHITE BLOOD COUNT 10.7 K/mm3 (4.0-10.0)
[2023-08-17 07:18] LABS: POTASSIUM 3.6 mmol/L (3.5-5.1)
[2023-08-17 07:24] LABS: BLOOD UREA NITROGEN 16.1 mg/dL (7-18); MAGNESIUM 1.8 mg/dL (1.8-2.4)
[2023-08-17 07:27] LABS: CREATININE 0.4 mg/dL (0.55-1.3); PHOSPHOROUS 2.7 mg/dL (2.5-4.9)
[2023-08-17 07:29] LABS: BILIRUBIN,TOTAL 0.6 mg/dL (0.2-1); TOT PROT 4.9 g/dl (6.4-8.2)
[2023-08-17 07:50] LABS: ALBUMIN 2.2 g/dl (3.4-5.0)
[2023-08-17] MEDS: DONEPEZIL HCL 10 MG TABLET (FP) PO SCH (09:11)
[2023-08-17] MEDS ORDERED: ENOXAPARIN NA (PORCINE) 40 MG/0.4 ML DISP.SYRIN SQ SCH (10:00)
[2023-08-17] MEDS: PIPERACILLIN/TAZOB 4.5 GM 4.5 GM in DEXTROSE 5%-WATER 100 ML IVPB SCH (21:52)
[2023-08-18] MEDS: VANCOMYCIN/WATER FOR INJ (PEG) 1,000 MG/200 ML BAG IVPB SCH (06:59)
[2023-08-18 07:59] LABS: HEMATOCRIT 31.5 % (32.4-45.2); HEMOGLOBIN 10.4 GM/dL (10.7-15.3); MCH 30.3 pg (25.7-33.7); MCHC 33.1 g/dl (32.0-36.0); MEAN CELL VOLUME 91.6 fl (80-96); MEAN PLT VOLUME 7.1 fl (7.5-11.1); PLATELET COUNT 395 10^3/uL (134-434); RBC 3.44 M/mm3 (3.60-5.2); RDW 14.6 % (11.6-15.6); WHITE BLOOD COUNT 9.3 K/mm3 (4.0-10.0)
[2023-08-18 08:01] LABS: POTASSIUM 3.2 mmol/L (3.5-5.1)
[2023-08-18 08:04] LABS: ALBUMIN 2.1 g/dl (3.4-5.0); BLOOD UREA NITROGEN 18.3 mg/dL (7-18); CALCIUM 8.1 mg/dL (8.5-10.1)
[2023-08-18 08:07] LABS: CREATININE 0.4 mg/dL (0.55-1.3); PHOSPHOROUS 3.2 mg/dL (2.5-4.9)
[2023-08-18 08:09] LABS: BILIRUBIN,TOTAL 0.6 mg/dL (0.2-1)
[2023-08-18] MEDS: KCL 10 MEQ IVPB 10 MEQ/100 ML INFUS.BAG IVPB SCH (13:34)
[2023-08-19 07:32] LABS: INR 1.14 (0.83-1.09); PROTHROMBIN TIME (PATIENT) 13.2 SEC (9.7-13.0)
[2023-08-19 07:35] LABS: ACTIVATED PTT 29.9 SECONDS (25.2-36.5)
[2023-08-19 07:44] LABS: POTASSIUM 3.4 mmol/L (3.5-5.1)
[2023-08-19 07:50] LABS: BASO % 0.4 % (0-2.0); HEMATOCRIT 31.8 % (32.4-45.2); HEMOGLOBIN 10.7 GM/dL (10.7-15.3); LYMPH % 9.4 % (8-40); MCH 30.5 pg (25.7-33.7); MCHC 33.7 g/dl (32.0-36.0); MEAN CELL VOLUME 90.5 fl (80-96); MEAN PLT VOLUME 7.2 fl (7.5-11.1); NEUT % 81.2 % (42.8-82.8); PLATELET COUNT 382 10^3/uL (134-434); RBC 3.51 M/mm3 (3.60-5.2); RDW 14.3 % (11.6-15.6); WHITE BLOOD COUNT 9.6 K/mm3 (4.0-10.0)
[2023-08-19 07:53] LABS: CALCIUM 8.1 mg/dL (8.5-10.1)
[2023-08-19 07:54] LABS: ALBUMIN 1.9 g/dl (3.4-5.0); BLOOD UREA NITROGEN 12.5 mg/dL (7-18); MAGNESIUM 1.9 mg/dL (1.8-2.4)
[2023-08-19 07:56] LABS: CREATININE 0.3 mg/dL (0.55-1.3); PHOSPHOROUS 3.2 mg/dL (2.5-4.9)
[2023-08-19 07:58] LABS: BILIRUBIN,TOTAL 0.6 mg/dL (0.2-1); TOT PROT 4.8 g/dl (6.4-8.2)
[2023-08-19] MEDS ORDERED: BUPIVACAINE HCL/PF 0.5% (5MG/ML) 10 ML VIAL ONE (08:22)
[2023-08-19] MEDS ORDERED: LIDOCAINE HCL 1%, 10 MG/ML (20ML VIAL) ONE (08:22)
[2023-08-19] MEDS ORDERED: FENTANYL CITRATE/PF 50 MCG/ML VIAL ONE ×2 (09:23→10:56)
[2023-08-19] MEDS ORDERED: PROPOFOL 20 ML ONE (09:23)
[2023-08-19] MEDS ORDERED: MIDAZOLAM HCL 2 MG/2 ML SINGLE DOSE VIAL ONE (09:23)
[2023-08-19] MEDS ORDERED: KETAMINE HCL 200 MG/20 ML VIAL ONE (09:41)
[2023-08-19] MEDS ORDERED: ONDANSETRON 4 MG/2 ML VIAL ONE (10:21)
[2023-08-19] MEDS ORDERED: PHENYLEPHRINE HCL 10 MG/1 ML SINGLE DOSE VIAL ONE (10:21)
[2023-08-19] MEDS ORDERED: DEXAMETHASONE SOD PHOSPHATE 4 MG/1 ML VIAL ONE (10:21)
[2023-08-19] MEDS ORDERED: KETOROLAC TROMETHAMINE 30 MG/1 ML VIAL ONE (10:21)
[2023-08-19] MEDS ORDERED: ONDANSETRON 4 MG/2 ML VIAL IVPUSH PRN (11:11)
[2023-08-19] MEDS: PIPERACILLIN/TAZOB 3.375 GM 3.375 GM in DEXTROSE 5%-WATER - 50 ML IVPB SCH (11:26)
[2023-08-19] MEDS: VANCOMYCIN 1,000 MG in DEXTROSE 5%-WATER - 250 ML IVPB SCH (11:26)
[2023-08-19] MEDS: LACTATED RINGERS SOLUTION 1,000 ML IV SCH (12:35)
[2023-08-19] MEDS: PIPERACILLIN/TAZOB 4.5 GM 4.5 GM in DEXTROSE 5%-WATER 100 ML IVPB SCH (15:00)
[2023-08-19] MEDS: VANCOMYCIN/WATER FOR INJ (PEG) 1,000 MG/200 ML BAG IVPB SCH (17:41)
[2023-08-19] MEDS: MEMANTINE HCL 10 MG TABLET (FP) PO SCH (21:28)
[2023-08-19] MEDS: HEPARIN NA (PORCINE) 5,000 UNITS/ML 1ML VIAL SQ SCH (21:28)
[2023-08-19] MEDS: DONEPEZIL HCL 10 MG TABLET (FP) PO SCH (21:28)
[2023-08-20 08:30] LABS: BASO % 0.5 % (0-2.0); EOS % 0.2 % (0-4.5); HEMATOCRIT 31.1 % (32.4-45.2); HEMOGLOBIN 10.4 GM/dL (10.7-15.3); LYMPH % 12.7 % (8-40); MCH 30.5 pg (25.7-33.7); MCHC 33.4 g/dl (32.0-36.0); MEAN CELL VOLUME 91.4 fl (80-96); MEAN PLT VOLUME 7.2 fl (7.5-11.1); MONO % 6.9 % (3.8-10.2); NEUT % 79.7 % (42.8-82.8); PLATELET COUNT 449 10^3/uL (134-434); RBC 3.41 M/mm3 (3.60-5.2); RDW 14.1 % (11.6-15.6); WHITE BLOOD COUNT 9.4 K/mm3 (4.0-10.0)
[2023-08-20 08:51] LABS: POTASSIUM 3.6 mmol/L (3.5-5.1)
[2023-08-20 08:56] LABS: BLOOD UREA NITROGEN 19.2 mg/dL (7-18); CALCIUM 8.4 mg/dL (8.5-10.1); MAGNESIUM 1.9 mg/dL (1.8-2.4)
[2023-08-20 08:58] LABS: CREATININE 0.5 mg/dL (0.55-1.3); PHOSPHOROUS 2.8 mg/dL (2.5-4.9)
[2023-08-20 08:59] LABS: BILIRUBIN,TOTAL 0.4 mg/dL (0.2-1)
[2023-08-20] MEDS ORDERED: ACETAMINOPHEN 325 MG TABLET (FP) PO PRN (12:55)
[2023-08-20] MEDS: ACETAMINOPHEN 1000 MG/100 ML BAG IVPB ONE (14:40)
[2023-08-21 07:36] LABS: BASO % 0.6 % (0-2.0); EOS % 1.6 % (0-4.5); HEMATOCRIT 31.3 % (32.4-45.2); HEMOGLOBIN 10.7 GM/dL (10.7-15.3); LYMPH % 12.4 % (8-40); MCH 30.8 pg (25.7-33.7); MCHC 34.3 g/dl (32.0-36.0); MEAN CELL VOLUME 89.8 fl (80-96); MEAN PLT VOLUME 6.7 fl (7.5-11.1); MONO % 6.8 % (3.8-10.2); NEUT % 78.6 % (42.8-82.8); PLATELET COUNT 448 10^3/uL (134-434); RBC 3.48 M/mm3 (3.60-5.2); RDW 14.3 % (11.6-15.6); WHITE BLOOD COUNT 13.4 K/mm3 (4.0-10.0)
[2023-08-21 07:55] LABS: POTASSIUM 4.1 mmol/L (3.5-5.1)
[2023-08-21 08:06] LABS: CALCIUM 8.3 mg/dL (8.5-10.1)
[2023-08-21 08:07] LABS: ALBUMIN 2.1 g/dl (3.4-5.0); BLOOD UREA NITROGEN 24.7 mg/dL (7-18); MAGNESIUM 1.8 mg/dL (1.8-2.4)
[2023-08-21 08:10] LABS: CREATININE 0.5 mg/dL (0.55-1.3)
[2023-08-21 08:11] LABS: BILIRUBIN,TOTAL 0.3 mg/dL (0.2-1); TOT PROT 5.3 g/dl (6.4-8.2)
[2023-08-21] MEDS: DOXYCYCLINE HYCLATE 100 MG CAPSULE PO SCH (17:38)
[2023-08-22 08:13] LABS: BASO % 0.4 % (0-2.0); EOS % 1.6 % (0-4.5); HEMATOCRIT 33.4 % (32.4-45.2); HEMOGLOBIN 10.9 GM/dL (10.7-15.3); LYMPH % 19.4 % (8-40); MCH 29.4 pg (25.7-33.7); MCHC 32.5 g/dl (32.0-36.0); MEAN CELL VOLUME 90.6 fl (80-96); MEAN PLT VOLUME 7.2 fl (7.5-11.1); MONO % 6.5 % (3.8-10.2); NEUT % 72.1 % (42.8-82.8); PLATELET COUNT 450 10^3/uL (134-434); POTASSIUM 4.3 mmol/L (3.5-5.1); RBC 3.69 M/mm3 (3.60-5.2); RDW 14.2 % (11.6-15.6); WHITE BLOOD COUNT 12.5 K/mm3 (4.0-10.0)
[2023-08-22 08:17] LABS: CALCIUM 8.7 mg/dL (8.5-10.1)
[2023-08-22 08:18] LABS: ALBUMIN 2.2 g/dl (3.4-5.0); BLOOD UREA NITROGEN 17.3 mg/dL (7-18)
[2023-08-22 08:21] LABS: CREATININE 0.4 mg/dL (0.55-1.3); PHOSPHOROUS 3.4 mg/dL (2.5-4.9)
[2023-08-22 08:22] LABS: BILIRUBIN,TOTAL 0.3 mg/dL (0.2-1); TOT PROT 5.4 g/dl (6.4-8.2)
[2023-08-22] MEDS: PIPERACILLIN/TAZOB 3.375 GM 3.375 GM in DEXTROSE 5%-WATER - 50 ML IVPB SCH ×2 (14:50→17:48)
[2023-08-22] MEDS ORDERED: PIPERACILLIN/TAZOB 3.375 GM 3.375 GM in DEXTROSE 5%-WATER - 50 ML IVPB SCH (18:00)
[2023-08-23 06:29] LABS: BASO % 0.5 % (0-2.0); EOS % 2.5 % (0-4.5); HEMATOCRIT 32.1 % (32.4-45.2); HEMOGLOBIN 10.7 GM/dL (10.7-15.3); MCH 29.9 pg (25.7-33.7); MCHC 33.3 g/dl (32.0-36.0); MEAN CELL VOLUME 89.7 fl (80-96); MEAN PLT VOLUME 6.8 fl (7.5-11.1); MONO % 5.3 % (3.8-10.2); NEUT % 81.7 % (42.8-82.8); PLATELET COUNT 455 10^3/uL (134-434); RBC 3.58 M/mm3 (3.60-5.2); RDW 14.3 % (11.6-15.6); WHITE BLOOD COUNT 14.3 K/mm3 (4.0-10.0)
[2023-08-23 07:02] LABS: POTASSIUM 3.9 mmol/L (3.5-5.1)
[2023-08-23 07:08] LABS: CALCIUM 8.3 mg/dL (8.5-10.1)
[2023-08-23 07:09] LABS: ALBUMIN 2.2 g/dl (3.4-5.0); BLOOD UREA NITROGEN 15.4 mg/dL (7-18); MAGNESIUM 2.1 mg/dL (1.8-2.4)
[2023-08-23 07:12] LABS: CREATININE 0.4 mg/dL (0.55-1.3); PHOSPHOROUS 3.9 mg/dL (2.5-4.9)
[2023-08-23 07:13] LABS: TOT PROT 5.4 g/dl (6.4-8.2)
[2023-08-23 07:14] LABS: BILIRUBIN,TOTAL 0.3 mg/dL (0.2-1)
[2023-08-23] MEDS: SODIUM CHLORIDE 500 ML IV STA (15:04)
[2023-08-24 07:39] LABS: BASO % 0.3 % (0-2.0); EOS % 1.9 % (0-4.5); HEMATOCRIT 33.2 % (32.4-45.2); HEMOGLOBIN 11.1 GM/dL (10.7-15.3); LYMPH % 7.1 % (8-40); MCH 30.7 pg (25.7-33.7); MCHC 33.5 g/dl (32.0-36.0); MEAN CELL VOLUME 91.7 fl (80-96); MEAN PLT VOLUME 6.9 fl (7.5-11.1); MONO % 5.6 % (3.8-10.2); NEUT % 85.1 % (42.8-82.8); PLATELET COUNT 461 10^3/uL (134-434); RBC 3.62 M/mm3 (3.60-5.2); RDW 14.9 % (11.6-15.6); WHITE BLOOD COUNT 17.9 K/mm3 (4.0-10.0)
[2023-08-24 08:27] LABS: ALBUMIN 2.2 g/dl (3.4-5.0); BLOOD UREA NITROGEN 21.9 mg/dL (7-18); CALCIUM 8.6 mg/dL (8.5-10.1)
[2023-08-24 08:30] LABS: CREATININE 0.4 mg/dL (0.55-1.3)
[2023-08-24 08:32] LABS: BILIRUBIN,TOTAL 0.4 mg/dL (0.2-1); TOT PROT 5.6 g/dl (6.4-8.2)
[2023-08-25] MEDS: VANCOMYCIN/WATER FOR INJ (PEG) 1,000 MG/200 ML BAG IVPB ONE (00:32)
[2023-08-25] MEDS ORDERED: RAPID SEQUENCE INTUBATION KIT NR ONE (12:51)
[2023-08-25 12:53] LABS: ARTERIAL BLD GAS O2 SATURATION 71.9 % (95-98); ARTERIAL BLOOD GAS BASE EXCESS -1.3 mmol/L (-2-2); ARTERIAL BLOOD GAS pH 7.412 (7.350-7.450)
[2023-08-25 12:54] LABS: ALLENS TEST POSITIVE
[2023-08-25 12:57] LABS: ARTERIAL BLOOD GAS PO2 37.2 mmHg (80-100)
[2023-08-25] MEDS ORDERED: PROPOFOL 1,000,000 MCG/100 ML VIAL IVPUSH SCH (13:30)
[2023-08-25 13:54] LABS: URINE APPEARANCE CLEAR; URINE BILIRUBIN NEGATIVE (NEGATIVE); URINE COLOR YELLOW; URINE GLUCOSE (UA) NEGATIVE (NEGATIVE); URINE KETONE NEGATIVE (NEGATIVE); URINE LEUK ESTERASE NEGATIVE (NEGATIVE); URINE NITRITE NEGATIVE (NEGATIVE); URINE PROTEIN TRACE (NEGATIVE); URINE UROBILINOGEN 0.2 mg/dL (0.2-1.0)
[2023-08-25] MEDS: ACETYLCYSTEINE 20% 200MG/ML 4 ML VIAL *FOR ORAL / INH USE ONLY NEB SCH (13:57)
[2023-08-25] MEDS: ALBUTEROL SO4 0.083% IH SOL 2.5 MG/3 ML VIAL.NEB. NEB SCH ×2 (13:57→20:30)
[2023-08-25 14:46] LABS: ARTERIAL BLD GAS O2 SATURATION 95.3 % (95-98); ARTERIAL BLOOD GAS BASE EXCESS -1.7 mmol/L (-2-2); ARTERIAL BLOOD GAS PO2 71.1 mmHg (80-100); ARTERIAL BLOOD GAS pH 7.461 (7.350-7.450)
[2023-08-25 14:53] LABS: ALLENS TEST POSITIVE
[2023-08-25 14:54] LABS: VENT MODE AC; VENT RATE 16
[2023-08-25] MEDS: DEXMEDETOMIDINE PREMIX 400 MCG/100 ML BAG IVPB SCH (15:35)
[2023-08-25] MEDS ORDERED: FENTANYL NS IVPB 500 MCG/100 ML BAG IVPB ONE (15:39)
[2023-08-25] MEDS: SODIUM CHLORIDE 1,000 ML IV STA (16:48)
[2023-08-25] MEDS: FENTANYL IVPB 500 MCG/100 ML BAG IVPB SCH (16:48)
[2023-08-25] MEDS: LACTATED RINGERS SOLUTION 1,000 ML/1,000 ML INFUS.BAG IV SCH (18:03)
[2023-08-25] MEDS: MIDAZOLAM IN 0.9 % SOD.CHLORID 100 MG/100 ML PLAST..BAG IVPB SCH (18:04)
[2023-08-25] MEDS: LACTATED RINGERS SOLUTION 1,000 ML/1,000 ML INFUS.BAG IV STA (19:00)
[2023-08-25] MEDS ORDERED: ACETAMINOPHEN 325 MG TABLET (FP) PO PRN (19:34)
[2023-08-25] MEDS ORDERED: MIDODRINE HCL 5 MG TABLET PO SCH (20:20)
[2023-08-25] MEDS: MIDODRINE HCL 5 MG TABLET PO SCH (20:30)
[2023-08-25] MEDS: ACETYLCYSTEINE 20% 200MG/ML 30 ML VIAL *FOR ORAL / INH USE ONLY NEB SCH (20:30)
[2023-08-25] MEDS ORDERED: ACETYLCYSTEINE 20% 200MG/ML 4 ML VIAL *FOR ORAL / INH USE ONLY ONE (20:42)
[2023-08-25] MEDS: MEMANTINE HCL 10 MG TABLET (FP) PO SCH (22:09)
[2023-08-25] MEDS: DONEPEZIL HCL 10 MG TABLET (FP) PO SCH (22:09)
[2023-08-25] MEDS: HEPARIN NA (PORCINE) 5,000 UNITS/ML 1ML VIAL SQ SCH (22:10)
[2023-08-25] MEDS: CHLORHEXIDINE GLUCONATE 4% CLEANSER FOR DECOLONIZATION TP SCH (22:10)
[2023-08-25] MEDS: MUPIROCIN 2% TOPICAL OINTMENT FOR DECOLONIZATION NS SCH (22:10)
[2023-08-25] MEDS: DOXYCYCLINE INJECTION 100 MG in DEXTROSE 5%-WATER 100 ML IVPB SCH (22:11)
[2023-08-26] MEDS: PIPERACILLIN/TAZOB 3.375 GM 3.375 GM in DEXTROSE 5%-WATER - 50 ML IVPB SCH (01:04)
[2023-08-26 07:35] LABS: HEMATOCRIT 31.2 % (32.4-45.2); HEMOGLOBIN 10.1 GM/dL (10.7-15.3); MCH 29.4 pg (25.7-33.7); MCHC 32.4 g/dl (32.0-36.0); MEAN CELL VOLUME 90.8 fl (80-96); MEAN PLT VOLUME 6.9 fl (7.5-11.1); PLATELET COUNT 434 10^3/uL (134-434); RBC 3.43 M/mm3 (3.60-5.2); RDW 14.5 % (11.6-15.6); WHITE BLOOD COUNT 23.7 K/mm3 (4.0-10.0)
[2023-08-26 07:52] LABS: POTASSIUM 4.5 mmol/L (3.5-5.1)
[2023-08-26 07:57] LABS: CALCIUM 8.2 mg/dL (8.5-10.1)
[2023-08-26 07:58] LABS: BLOOD UREA NITROGEN 20.6 mg/dL (7-18); MAGNESIUM 1.8 mg/dL (1.8-2.4)
[2023-08-26 08:00] LABS: PHOSPHOROUS 3.1 mg/dL (2.5-4.9)
[2023-08-26 08:01] LABS: CREATININE 0.4 mg/dL (0.55-1.3)
[2023-08-26 08:04] LABS: BILIRUBIN,TOTAL 0.4 mg/dL (0.2-1); TOT PROT 4.6 g/dl (6.4-8.2)
[2023-08-26 08:33] LABS: ANISOCYTOSIS 1+; MACROCYTOSIS 0
[2023-08-26 08:35] LABS: ALBUMIN 1.7 g/dl (3.4-5.0)
[2023-08-26] MEDS: ACETYLCYSTEINE 20% 200MG/ML 4 ML VIAL *FOR ORAL / INH USE ONLY NEB SCH (08:40)
[2023-08-26] MEDS ORDERED: MIDODRINE HCL 5 MG TABLET PO SCH (10:00)
[2023-08-27 07:11] LABS: HEMATOCRIT 28.6 % (32.4-45.2); HEMOGLOBIN 9.3 GM/dL (10.7-15.3); MCH 29.4 pg (25.7-33.7); MCHC 32.4 g/dl (32.0-36.0); MEAN CELL VOLUME 90.9 fl (80-96); MEAN PLT VOLUME 7.3 fl (7.5-11.1); PLATELET COUNT 420 10^3/uL (134-434); RBC 3.15 M/mm3 (3.60-5.2); RDW 14.5 % (11.6-15.6)
[2023-08-27 07:31] LABS: POTASSIUM 4.1 mmol/L (3.5-5.1)
[2023-08-27 07:36] LABS: ALBUMIN 1.5 g/dl (3.4-5.0); BLOOD UREA NITROGEN 18.2 mg/dL (7-18); CALCIUM 7.7 mg/dL (8.5-10.1); MAGNESIUM 1.9 mg/dL (1.8-2.4)
[2023-08-27 07:39] LABS: CREATININE 0.4 mg/dL (0.55-1.3)
[2023-08-27 07:40] LABS: PHOSPHOROUS 3.3 mg/dL (2.5-4.9)
[2023-08-27 07:41] LABS: TOT PROT 4.4 g/dl (6.4-8.2)
[2023-08-27 07:42] LABS: BILIRUBIN,TOTAL 0.4 mg/dL (0.2-1)
[2023-08-28 06:32] LABS: HEMATOCRIT 28.3 % (32.4-45.2); HEMOGLOBIN 9.2 GM/dL (10.7-15.3); MCHC 32.5 g/dl (32.0-36.0); MEAN CELL VOLUME 89.2 fl (80-96); MEAN PLT VOLUME 6.9 fl (7.5-11.1); PLATELET COUNT 444 10^3/uL (134-434); RBC 3.17 M/mm3 (3.60-5.2); RDW 14.6 % (11.6-15.6)
[2023-08-28 06:50] LABS: POTASSIUM 3.4 mmol/L (3.5-5.1)
[2023-08-28 06:54] LABS: ALBUMIN 1.5 g/dl (3.4-5.0); CALCIUM 8.1 mg/dL (8.5-10.1); MAGNESIUM 1.9 mg/dL (1.8-2.4)
[2023-08-28 06:55] LABS: BLOOD UREA NITROGEN 11.8 mg/dL (7-18)
[2023-08-28 06:57] LABS: CREATININE 0.4 mg/dL (0.55-1.3); PHOSPHOROUS 2.8 mg/dL (2.5-4.9)
[2023-08-28 06:59] LABS: BILIRUBIN,TOTAL 0.6 mg/dL (0.2-1); TOT PROT 4.7 g/dl (6.4-8.2)
[2023-08-28] MEDS: KCL 10 MEQ IVPB 10 MEQ/100 ML INFUS.BAG IVPB SCH (08:31)
[2023-08-28 08:44] LABS: ANISOCYTOSIS 2+; MACROCYTOSIS 0
[2023-08-28] MEDS: FUROSEMIDE 40 MG/4 ML INJECTABLE VIAL IVPUSH ONE (10:22)
[2023-08-29 07:24] LABS: HEMOGLOBIN 9.9 GM/dL (10.7-15.3); MCH 29.7 pg (25.7-33.7); MCHC 32.9 g/dl (32.0-36.0); MEAN CELL VOLUME 90.3 fl (80-96); MEAN PLT VOLUME 6.6 fl (7.5-11.1); PLATELET COUNT 514 10^3/uL (134-434); RBC 3.32 M/mm3 (3.60-5.2); RDW 14.5 % (11.6-15.6); WHITE BLOOD COUNT 25.5 K/mm3 (4.0-10.0)
[2023-08-29 07:42] LABS: POTASSIUM 3.1 mmol/L (3.5-5.1)
[2023-08-29 07:47] LABS: ALBUMIN 1.6 g/dl (3.4-5.0); BLOOD UREA NITROGEN 12.3 mg/dL (7-18); CALCIUM 8.2 mg/dL (8.5-10.1); MAGNESIUM 2.1 mg/dL (1.8-2.4)
[2023-08-29 07:51] LABS: CREATININE 0.3 mg/dL (0.55-1.3)
[2023-08-29 07:53] LABS: BILIRUBIN,TOTAL 0.6 mg/dL (0.2-1)
[2023-08-29] MEDS ORDERED: AMINO ACIDS 4.25%/D5W 1,000 ML IV SCH (09:15)
[2023-08-29] MEDS: POTASSIUM CHLORIDE 20 MEQ in AMINO ACIDS 4.25%/D5W 1,000 ML IV SCH (13:40)
[2023-08-29] MEDS: MEROPENEM 1 GM in DEXTROSE 5%-WATER 100 ML IVPB SCH (18:03)
[2023-08-29] MEDS: ACETAMINOPHEN 1000 MG/100 ML BAG IVPB PRN (21:11)
[2023-08-30 01:51] LABS: ARTERIAL BLD GAS O2 SATURATION 56.2 % (95-98); ARTERIAL BLOOD GAS BASE EXCESS -8.3 mmol/L (-2-2)
[2023-08-30 01:52] LABS: ALLENS TEST POSITIVE
[2023-08-30 01:54] LABS: ARTERIAL BLOOD GAS pH 6.832 (7.350-7.450)
[2023-08-30 01:55] LABS: ARTERIAL BLOOD GAS PCO2 > 148.50 mmHg (35-45)
[2023-08-30 06:57] LABS: ARTERIAL BLD GAS O2 SATURATION 88.3 % (95-98); ARTERIAL BLOOD GAS BASE EXCESS -0.4 mmol/L (-2-2); ARTERIAL BLOOD GAS PO2 63.3 mmHg (80-100); ARTERIAL BLOOD GAS pH 7.261 (7.350-7.450)
[2023-08-30 07:01] LABS: ALLENS TEST POSITIVE
[2023-08-30 07:02] LABS: VENT RATE 16
[2023-08-30 09:26] LABS: HEMOGLOBIN 9.9 GM/dL (10.7-15.3); MCH 29.2 pg (25.7-33.7); MCHC 31.9 g/dl (32.0-36.0); MEAN CELL VOLUME 91.7 fl (80-96); MEAN PLT VOLUME 6.6 fl (7.5-11.1); PLATELET COUNT 507 10^3/uL (134-434); RBC 3.38 M/mm3 (3.60-5.2); RDW 14.8 % (11.6-15.6)
[2023-08-30 09:43] LABS: POTASSIUM 3.3 mmol/L (3.5-5.1); WHITE BLOOD COUNT 30.9 K/mm3 (4.0-10.0)
[2023-08-30 09:45] LABS: BLOOD UREA NITROGEN 24.8 mg/dL (7-18)
[2023-08-30 09:49] LABS: CREATININE 0.4 mg/dL (0.55-1.3)
[2023-08-30 09:50] LABS: BILIRUBIN,TOTAL 0.4 mg/dL (0.2-1); TOT PROT 4.8 g/dl (6.4-8.2)
[2023-08-30 09:53] LABS: ALBUMIN 1.5 g/dl (3.4-5.0); CALCIUM 8.7 mg/dL (8.5-10.1)
[2023-08-30] MEDS: VANCOMYCIN/WATER FOR INJ (PEG) 1,000 MG/200 ML BAG IVPB ONE (19:58)
[2023-08-30] MEDS: KCL 10 MEQ IVPB 10 MEQ/100 ML INFUS.BAG IVPB SCH (19:58)
[2023-08-31] MEDS: ACETAMINOPHEN 1000 MG/100 ML BAG IVPB ONE (03:18)
[2023-08-31 07:56] LABS: HEMATOCRIT 28.5 % (32.4-45.2); HEMOGLOBIN 9.3 GM/dL (10.7-15.3); MCH 29.3 pg (25.7-33.7); MCHC 32.5 g/dl (32.0-36.0); MEAN CELL VOLUME 90.2 fl (80-96); PLATELET COUNT 469 10^3/uL (134-434); RBC 3.16 M/mm3 (3.60-5.2)
[2023-08-31 08:06] LABS: POTASSIUM 3.2 mmol/L (3.5-5.1)
[2023-08-31 08:08] LABS: CALCIUM 8.8 mg/dL (8.5-10.1)
[2023-08-31 08:10] LABS: ALBUMIN 1.4 g/dl (3.4-5.0); BLOOD UREA NITROGEN 17.4 mg/dL (7-18); MAGNESIUM 1.9 mg/dL (1.8-2.4)
[2023-08-31 08:13] LABS: BILIRUBIN,TOTAL 0.4 mg/dL (0.2-1); CREATININE 0.3 mg/dL (0.55-1.3); TOT PROT 4.6 g/dl (6.4-8.2)
[2023-08-31 08:30] LABS: WHITE BLOOD COUNT 31.6 K/mm3 (4.0-10.0)
[2023-08-31 09:28] LABS: ANISOCYTOSIS 0; MACROCYTOSIS 0
[2023-08-31] MEDS: POTASSIUM CHLORIDE 40 MEQ in AMINO ACIDS 4.25%/D5W 1,000 ML IV SCH (12:29)
[2023-08-31] MEDS: CASPOFUNGIN ACETATE 70 MG in SODIUM CHLORIDE 250 ML IVPB ONE (12:29)
[2023-08-31] MEDS: VANCOMYCIN/WATER FOR INJ (PEG) 1,000 MG/200 ML BAG IVPB SCH (12:29)
[2023-08-31] MEDS: ZINC OXIDE 20% TOPICAL OINTMENT 30 GM TUBE TP SCH (12:30)
[2023-08-31] MEDS: KCL 10 MEQ IVPB 10 MEQ/100 ML INFUS.BAG IVPB SCH (13:42)
[2023-08-31] MEDS: ACETAMINOPHEN 1000 MG/100 ML BAG IVPB PRN (13:43)
[2023-08-31] MEDS: SODIUM CHLORIDE 0.9% 500 ML INFUS.BAG IV ONE (16:00)
[2023-09-01 07:29] LABS: HEMATOCRIT 28.8 % (32.4-45.2); HEMOGLOBIN 9.4 GM/dL (10.7-15.3); MCH 29.2 pg (25.7-33.7); MCHC 32.8 g/dl (32.0-36.0); MEAN PLT VOLUME 6.8 fl (7.5-11.1); PLATELET COUNT 487 10^3/uL (134-434); RBC 3.23 M/mm3 (3.60-5.2); RDW 14.8 % (11.6-15.6)
[2023-09-01 07:40] LABS: WHITE BLOOD COUNT 39.6 K/mm3 (4.0-10.0)
[2023-09-01 07:55] LABS: CHLORIDE 109 mmol/L (98-107); SODIUM 141 mmol/L (136-145)
[2023-09-01 07:59] LABS: ALBUMIN 1.3 g/dl (3.4-5.0); ANION GAP 4 mmol/L (4-13); BLOOD UREA NITROGEN 16.8 mg/dL (7-18); CALCIUM 8.6 mg/dL (8.5-10.1); CO2 29 mmol/L (21-32); GLUCOSE,RANDOM 113 mg/dL (74-106); MAGNESIUM 1.7 mg/dL (1.8-2.4)
[2023-09-01 08:02] LABS: CREATININE 0.3 mg/dL (0.55-1.3); SGOT/AST 11 U/L (15-37); SGPT/ALT 11 U/L (13-61)
[2023-09-01 08:04] LABS: BILIRUBIN,TOTAL 0.4 mg/dL (0.2-1); TOT PROT 4.4 g/dl (6.4-8.2)
[2023-09-01 08:05] LABS: ALK PHOS 123 U/L (45-117)
[2023-09-01 08:08] LABS: PHOSPHOROUS 1.1 mg/dL (2.5-4.9)
[2023-09-01 09:25] LABS: ANISOCYTOSIS 0; MACROCYTOSIS 0
[2023-09-01] MEDS: MAGNESIUM 2GM/50ML STERILE WATER IVPB IVPB ONE (09:27)
[2023-09-01] MEDS: POTASSIUM PHOSPHATE 30 MM in SODIUM CHLORIDE 250 ML IVPB ONE (12:13)
[2023-09-01] MEDS: FUROSEMIDE 40 MG/4 ML INJECTABLE VIAL IVPUSH ONE (15:48)
[2023-09-01] MEDS: KCL 10 MEQ IVPB 10 MEQ/100 ML INFUS.BAG IVPB SCH (17:26)
[2023-09-01] MEDS: MEROPENEM 1 GM in DEXTROSE 5%-WATER 100 ML IVPB SCH (18:38)
[2023-09-01] MEDS: MIDODRINE HCL 5 MG TABLET PO SCH (18:54)
[2023-09-01] MEDS: ACETYLCYSTEINE 20% 200MG/ML 4 ML VIAL *FOR ORAL / INH USE ONLY NEB SCH (19:33)
[2023-09-01] MEDS: ALBUTEROL SO4 0.083% IH SOL 2.5 MG/3 ML VIAL.NEB. NEB SCH (19:34)
[2023-09-01] MEDS: DONEPEZIL HCL 10 MG TABLET (FP) PO SCH (21:02)
[2023-09-01] MEDS: MEMANTINE HCL 10 MG TABLET (FP) PO SCH (21:02)
[2023-09-01] MEDS: ZINC OXIDE 20% TOPICAL OINTMENT 30 GM TUBE TP SCH (21:25)
[2023-09-01] MEDS: HEPARIN NA (PORCINE) 5,000 UNITS/ML 1ML VIAL SQ SCH (21:25)
[2023-09-01] MEDS ORDERED: CHLORHEXIDINE GLUCONATE 4% CLEANSER FOR DECOLONIZATION TP SCH (22:00)
[2023-09-02] MEDS: VANCOMYCIN/WATER FOR INJ (PEG) 1,000 MG/200 ML BAG IVPB SCH (00:53)
[2023-09-02] MEDS ORDERED: MEROPENEM 1 GM VIAL (RESTRICTED TO ID) IVPB ONE (04:44)
[2023-09-02] MEDS: ACETAMINOPHEN 1000 MG/100 ML BAG IVPB ONE (05:55)
[2023-09-02 07:31] LABS: HEMATOCRIT 29.8 % (32.4-45.2); HEMOGLOBIN 9.4 GM/dL (10.7-15.3); MCH 28.4 pg (25.7-33.7); MCHC 31.6 g/dl (32.0-36.0); MEAN CELL VOLUME 89.9 fl (80-96); MEAN PLT VOLUME 6.6 fl (7.5-11.1); PLATELET COUNT 298 10^3/uL (134-434); RBC 3.31 M/mm3 (3.60-5.2)
[2023-09-02 07:49] LABS: POTASSIUM 3.9 mmol/L (3.5-5.1)
[2023-09-02 07:54] LABS: CALCIUM 8.6 mg/dL (8.5-10.1)
[2023-09-02 07:55] LABS: ALBUMIN 1.2 g/dl (3.4-5.0); MAGNESIUM 2.2 mg/dL (1.8-2.4)
[2023-09-02 07:57] LABS: CREATININE 0.3 mg/dL (0.55-1.3)
[2023-09-02 07:58] LABS: BILIRUBIN,TOTAL 0.4 mg/dL (0.2-1); TOT PROT 4.4 g/dl (6.4-8.2)
[2023-09-02] MEDS: POTASSIUM PHOSPHATE 30 MM in DEXTROSE 5%-WATER - 500 ML IVPB ONE (09:27)
[2023-09-02 09:44] LABS: ANISOCYTOSIS 3+; MACROCYTOSIS 0
[2023-09-02] MEDS: POTASSIUM CHLORIDE 40 MEQ in AMINO ACIDS 4.25%/D5W 1,000 ML IV SCH (14:37)
[2023-09-02] MEDS: ACETAMINOPHEN 1000 MG/100 ML BAG IVPB PRN (16:38)
[2023-09-02 17:10] LABS: ARTERIAL BLD GAS O2 SATURATION 93.3 % (95-98); ARTERIAL BLOOD GAS BASE EXCESS -1.1 mmol/L (-2-2); ARTERIAL BLOOD GAS PO2 67.2 mmHg (80-100); ARTERIAL BLOOD GAS pH 7.392 (7.350-7.450)
[2023-09-02 17:14] LABS: ALLENS TEST POSITIVE
[2023-09-02 17:15] LABS: VENT MODE S/T
[2023-09-02 17:16] LABS: VENT RATE 16
[2023-09-03 07:52] LABS: HEMATOCRIT 29.5 % (32.4-45.2); HEMOGLOBIN 9.4 GM/dL (10.7-15.3); MCH 28.6 pg (25.7-33.7); MCHC 31.9 g/dl (32.0-36.0); MEAN CELL VOLUME 89.7 fl (80-96); PLATELET COUNT 155 10^3/uL (134-434); RBC 3.29 M/mm3 (3.60-5.2); RDW 15.4 % (11.6-15.6)
[2023-09-03 07:56] LABS: WHITE BLOOD COUNT 35.9 K/mm3 (4.0-10.0)
[2023-09-03 07:59] LABS: POTASSIUM 5.3 mmol/L (3.5-5.1)
[2023-09-03 08:03] LABS: CALCIUM 8.5 mg/dL (8.5-10.1)
[2023-09-03 08:04] LABS: ALBUMIN 1.1 g/dl (3.4-5.0); BLOOD UREA NITROGEN 33.2 mg/dL (7-18); MAGNESIUM 2.2 mg/dL (1.8-2.4)
[2023-09-03 08:07] LABS: CREATININE 0.4 mg/dL (0.55-1.3); PHOSPHOROUS 2.9 mg/dL (2.5-4.9)
[2023-09-03 08:08] LABS: BILIRUBIN,TOTAL 0.3 mg/dL (0.2-1)
[2023-09-03 08:09] LABS: TOT PROT 4.2 g/dl (6.4-8.2)
[2023-09-03 09:01] LABS: ANISOCYTOSIS 0; MACROCYTOSIS 0
[2023-09-03] MEDS: MIDODRINE HCL 5 MG TABLET PO SCH (09:57)
[2023-09-03 10:21] VITALS: RESP 16
[2023-09-03] MEDS ORDERED: AMINO ACIDS 4.25%/D5W 1,000 ML IV SCH (10:45)
[2023-09-03 12:07] VITALS: BP 70/30; PULSE 109; TEMP 99.3
== END 2023-09-03 12:30 | disposition expired | DRG 853 ==
LOC: JER 13:53 → JERBED 18:11 → J4S 22:33 → JICU 08-25 13:30 → J4S 09-01 17:53
PROVIDERS: ADMIT Internal Medicine; ATTEND Internal Medicine
PROC: 0KBQ0ZZ Excision of Right Upper Leg Muscle, Open Approach (ICD-10-PCS; principal; 2023-08-19 11:00)
PROC: 0BH17EZ Insertion of Endotracheal Airway into Trachea, Via Natural or Artificial Opening (ICD-10-PCS; 2023-08-25)
PROC: 5A1945Z Respiratory Ventilation, 24-96 Consecutive Hours (ICD-10-PCS; 2023-08-25)
PROC: 05HD33Z Insertion of Infusion Device into Right Cephalic Vein, Percutaneous Approach (ICD-10-PCS; 2023-08-29)
DX: A41.9 Sepsis, unspecified organism (principal); J69.0 Pneumonitis due to inhalation of food and vomit; J96.01 Acute respiratory failure with hypoxia; R53.2 Functional quadriplegia; J96.02 Acute respiratory failure with hypercapnia; L97.909 Non-pressure chronic ulcer of unspecified part of unspecified lower leg with unspecified severity; L02.419 Cutaneous abscess of limb, unspecified; J98.11 Atelectasis; F03.90 Unspecified dementia, unspecified severity, without behavioral disturbance, psychotic disturbance, mood disturbance, and anxiety; I10 Essential (primary) hypertension; E78.5 Hyperlipidemia, unspecified; A49.02 Methicillin resistant Staphylococcus aureus infection, unspecified site; R65.20 Severe sepsis without septic shock; D64.9 Anemia, unspecified; R74.01 Elevation of levels of liver transaminase levels; R13.10 Dysphagia, unspecified
CPT/HCPCS: 0241U-QW; 36415; 36600; 70450-TC; 71045-TC-FY; 73110-TC-LT-FY; 73130-TC-LT-FY; 73502-TC-RT-FY; 74230-TC-FY; 76882-TC-RT-FY; 80053; 81003; 82140; 82803; 82962; 83605; 83735; 84100; 84484; 85025; 85027; 85610; 85651; 85730; 86140; 86850; 86900; 86901; 87040; 87070; 87086; 87186; 87205; 88304-TC; 92611-GN; 93005; 93010; 94002; 94010; 94640; 94660; 94760; 97116-GP; 97161-GP; 99291; G0463-25; G0480; J0131; J1644